=== PATIENT | male | born 1940 | race Caucasian/White ===

== ENCOUNTER 2016-11-21 19:33 | Observation (INO) | payer MEDICARE, OTHER ==
[2016-11-21] MEDS ORDERED: NS 0.9% 1000 ML* 1,000 ML IV ONE (21:24)
--- NOTE | 2016-11-21 21:44 | ED ---
Jeff Hylton SooYoung, scribed for Deion Hartman MD on 11/21/16 at 2123 . Abdominal Pain/Male - HPI Summary HPI Summary: A 76 y/o M presents to ED with abd pain onset three days ago. The intensity has undulated over the past few days, but today it was severe and constant. Pt had an endoscopy four days ago. Spoke to GI doctor who recommended Nexium, which he did take , but it provided no relief. Endoscopy was clear. Associated sx: gas/ belching, decreased PO intake. Denies fever, vomiting, changes in BM. Aggravating factors: eating. Pert PMHx: pancreatitis in 2013; stomach CA, cholecystectomy; cholelithiasis. - History of Current Complaint Chief Complaint: EDAbdPain Stated Complaint: ABD PAIN Time Seen by Provider: 11/21/16 21:16 Hx Obtained From: Patient, Family/Fitter And Turner Onset/Duration: Lasting Days, Still Present Timing: Constant Severity Initially: Moderate Severity Currently: Moderate Pain Intensity: 4 Pain Scale Used: 0-10 Numeric Location: Diffuse Aggravating Factor(s): Food Associated Signs And Symptoms: Positive: Decreased Appetite, Other - pos: belching; neg: BM changes. Negative: Fever, Vomiting - Allergies/Home Medications Allergies/Adverse Reactions: Allergies Allergy/AdvReac Type Severity Reaction Status Date / Time No Known Allergies Allergy Verified 11/17/16 10:56 PMH/Surg Hx/FS Hx/Imm Hx Previously Healthy: No Endocrine/Hematology History: Denies: Hx Diabetes, Hx Thyroid Disease Cardiovascular History: Reports: Hx Hypercholesterolemia, Hx Hypertension Denies: Hx Congestive Heart Failure, Hx Pacemaker/ICD Respiratory History: Denies: Hx Asthma, Hx Chronic Obstructive Pulmonary Disease (COPD) GI History: Reports: Other GI Disorders - SBO 07/2014 Denies: Hx Ulcer History: Denies: Hx Renal Disease Musculoskeletal History: Reports: Hx Arthritis Sensory History: Reports: Hx Contacts or Glasses - glasses Denies: Hx Hearing Aid Opthamlomology History: Reports: Hx Contacts or Glasses - glasses Psychiatric History: Denies: Hx Panic Disorder - Cancer History Cancer Type, Location and Year: Prostate cancer, diagnosed 2011. gall bladder CA 2014 - Surgical History Surgery Procedure, Year, and Place: Right knee replacement x2, most recent 2010 , [facility]. Left knee replacement, 2008, [facility]. Carpal tunnel release, right hand, 04/2013, [facility]. prostate biopsy. CHOLECYSTECTOMY ~3-19-15 Hx Anesthesia Reactions: No Infectious Disease History: Denies: Hx Hepatitis, Hx Human Immunodeficiency Virus (HIV), Traveled Outside the [place] in Last 30 Days - Family History Known Family History: Positive: Cardiac Disease - CHF, Other - colon CA, prostate CA, dementia - Social History Occupation: Retired Lives: With Family Alcohol Use: Occasionally Alcohol Amount: 2-3 wk Hx Substance Use: No Substance Use Type: Reports: None Hx Tobacco Use: No Smoking Status (MU): Never Smoked Tobacco Review of Systems Negative: Fever Positive: Abdominal Pain, Other - pos: decreased PO intake, gas/belching. Negative: Vomiting Positive: other - neg: changes in BM All Other Systems Reviewed And Are Negative: Yes Physical Exam Triage Information Reviewed: Yes Vital Signs On Initial Exam: Initial Vitals Temp Pulse Resp BP Pulse Ox 98.4 F 86 16 123/66 97 11/21/16 19:41 11/21/16 19:41 11/21/16 19:41 11/21/16 19:41 11/21/16 19:41 Vital Signs Reviewed: Yes Appearance: Positive: Well-Appearing, Pain Distress - mild discomfort Skin: Positive: Warm Head/Face: Positive: Normal Head/Face Inspection Eyes: Positive: WENDY ENT: Positive: Hearing grossly normal Neck: Positive: Supple Respiratory/Lung Sounds: Positive: Clear to Auscultation, Breath Sounds Present Cardiovascular: Positive: RRR Abdomen Description: Positive: Nontender - mild diffuse tenderness, Soft, Distended. Negative: Guarding Bowel Sounds: Positive: Present Musculoskeletal: Positive: Strength/ROM Intact Neurological: Positive: Alert, Oriented to Person Place, Time Psychiatric: Positive: Affect/Mood Appropriate Diagnostics - Vital Signs Vital Signs Temp Pulse Resp BP Pulse Ox 11/21/16 21:03 98.1 F 73 20 129/75 98 11/21/16 20:47 98.1 F 73 20 129/75 11/21/16 19:41 98.4 F 86 16 123/66 97 - Laboratory Result Diagrams: 11/21/16 22:12 11/21/16 22:12 Lab Statement: Any lab studies that have been ordered have been reviewed, and results considered in the medical decision making process. - CT ABD/PEL CT Interpretation: Positive (See Comments) - IMPRESSION: Probable portal vein and superior mesenteric vein thrombosis can be confirmed with duplex ultrasound. Duodenal inflammation may be primary, related to peptic ulcer dz, but recurrent neoplastic involvement from the gallbladder fossa is not excluded. Mild splenomegaly. CT Interpretation Completed By: Radiologist - Ultrasound No standard instances Ultrasound Interpretation: Positive (See Comments) - ABD U/S, IMPRESSION: Partial occlusion of the main and right portal veins, with nonvisualization of the left portal vein, left hepatic vein and poor visualization of the splenic vein. Ultrasound Interpretation Completed By: Radiologist Re-Evaluation - Re-Evaluation First Eval Comment: results d/w pt, d/w hospitalist Abdominal Pain Fem Course/Dx - Course Course Of Treatment: Pt is a 76 y/o M presenting with abd pain onset three days ago. The intensity has undulated over the past few days, but today it was severe and constant. Pt had an endoscopy four days ago. Spoke to GI doctor who recommended Nexium, which he did take , but it provided no relief. Endoscopy was clear. Associated sx: gas/belching, decreased PO intake. Denies fever, vomiting, changes in BM. Aggravating factors: eating. Pert PMHx: pancreatitis in 2013; stomach CA, cholecystectomy; cholelithiasis. Pt given fluids in ED. Labs show 115.98 CRP, 112 lipase, 156 alkaline phosphotase, 108 glucose, 1.8 bilirubin. UA results are nml except 1+ blood. APD/PEL CT shows "Probable portal vein and superior mesenteric vein thrombosis can be confirmed with duplex ultrasound. Duodenal inflammation may be primary, related to peptic ulcer dz, but recurrent neoplastic involvement from the gallbladder fossa is not excluded. Mild splenomegaly." ABD U/S shows "Partial occlusion of the main and right portal veins, with nonvisualization of the left portal vein, left hepatic vein and poor visualization of the splenic vein." - Diagnoses Provider Diagnoses: Portal vein thrombosis - Provider Notifications Discussed Care Of Patient With: Manuel Lara - hospitalist Time Discussed With Above Provider: 01:34 Instructed by Provider To: Admit As Inpatient Discharge - Discharge Plan Condition: Fair Disposition: ADMITTED TO [facility] The documentation as recorded by the Jeff hayward SooYoung accurately reflects the service I personally performed and the decisions made by me, Deion Hartman MD.
[2016-11-21 21:58] LABS: Urine Bacteria Absent (Absent); Urine Bilirubin Negative (Negative); Urine Glucose Negative (Negative); Urine Nitrite Negative (Negative)
[2016-11-21 22:19] LABS: Hematocrit 40 % (42-52); Hemoglobin 13.4 g/dl (14.0-18.0); Mean Corpuscular HGB Conc 34 g/dl (31-36); Mean Corpuscular Hemoglobin 30 pg (27-31); Mean Corpuscular Volume 88 fL (80-94); Mean Platelet Volume 10 um3 (7.4-10.4); Red Blood Count 4.51 10^6/ul (4.0-5.4); Red Cell Distribution Width 14 % (10.5-15)
[2016-11-21 22:33] LABS: EGFR Non-African American 68.3 (>60); Potassium 3.5 mmol/L (3.5-5.0)
[2016-11-21 22:34] LABS: Albumin 3.8 g/dL (3.2-5.2); C Reactive Protein 115.98 mg/L (< 5.00); Calcium 9.2 mg/dL (8.6-10.3); EGFR African American 87.8 (>60); Globulin 3.3 g/dL (2-4); Magnesium 1.8 mg/dL (1.9-2.7); Total Bilirubin 1.8 mg/dL (0.2-1.0); Total Protein 7.1 g/dL (6.4-8.9)
[2016-11-21] MEDS ORDERED: Iohexol 300* (CONTRAST) 10 ML SDV IV ONE (22:49)
[2016-11-22] MEDS ORDERED: HYDROmorphone* 1 MG/ML 1 ML SYR IV PRN (02:17)
[2016-11-22] MEDS ORDERED: Acetaminophen TAB* 325 MG PO PRN (02:17)
[2016-11-22] MEDS ORDERED: Melatonin (NF) 3 MG TAB PO PRN (02:17)
[2016-11-22] MEDS ORDERED: traMADol TAB* 50 MG PO PRN (02:17)
[2016-11-22] MEDS ORDERED: Ondansetron INJ* 2 MG/ML VIAL IV PRN (02:17)
--- NOTE | 2016-11-22 02:18 | HP ---
H&P (Free Text) History and Physical: PCP: Candice Gregory Date/Time of Evaluation: 11/22/2016 0205 CC: abdominal pain HPI: Mr Dukes is a 76YO obese male HX prostate CA, gastric lymphoma, & ? cholangiocarcinoma who underwent EGD via Maribell Doll MD GI this past Tuesday at which time he was in his usual health. Starting insidiously he began having diffuse abdominal discomfort associated with poor PO intake. He denies changes in bowel/bladder, F/C, sweats, weight loss, chest pain, SOB, palpitations, or other issues. Evaluation is notable for CT abd/pel W revealing portal vein thrombosis confirmed via US. PMedHx HTN HLD prostate CA s/p seed implants gastric CA s/p radiation ? cholantiocarcinoma s/p cholecystectomy gall stone pancreatitis s/p cholecystectomy BPH Ambulatory Orders Nursing to reconcile. Metoprolol Succinate XL TAB* [Toprol XL TAB*] 50 mg PO QPM 04/30/14 Pravastatin (NF) [Pravachol (NF)] 40 mg PO QPM 04/30/14 Valsartan/HCTZ 160/12.5(NF) [Diovan HCT 160/12.5 (NF)] 0.5 tab PO QPM 04/30/14 Tamsulosin CAP* [Flomax CAP*] 0.4 mg PO QPM 11/17/16 Allergies No Known Allergies Allergy (Verified 11/17/16 10:56) PSurgHx abdominal lymph node dissection with gall bladder/liver bed resection cholecystectomy R carpal tunnel release L TKA R TKA s/p revision SocHx: no tobacco, alcohol, or recreational drug HX; lives with his ; retired [facility] [employer]; full code status FamHx: Mother: passed in her 90s w/ HX CHF & dementia; Father: passed in his 60s 2nd colon CA; brother x2: prostate CA ROS: as above, otherwise reviewed and all were negative Constitutional: NAD, normally developed, obese elderly white male vitals: Vital Signs Temp 36.7 C 11/21/16 21:03 Pulse 74 11/22/16 01:00 Resp 20 11/21/16 21:03 BP 125/61 11/21/16 23:00 Pulse Ox 97 11/22/16 01:00 Intake & Output 07/07/0911/21/16 11/22/16 11:59 23:59 11:59 Weight 117.934 kg HEENM: atraumatic; sclera/conjunctiva: non-icteric/clear; hearing: clinically intact; oropharynx: clear, mucosa moist Neck: soft tissue: no nuchal rigidity; thyroid: normal Pulmonary: clear to auscultation bilaterally, good aeration, no accessory muscle use CV: RR/RR, normal S1S2, no carotid bruit, no jugular venous distention, 2+ B DP/ PT, no edema Abdominal: soft, non-distended, non-tender, no rebound/guarding/rigidity, normoactive bowel sounds, no hepatosplenomegaly or masses, no costovertebral angle tenderness Musculoskeletal: general: grossly intact; gait: stable Integumental: normal appearance and texture of exposed skin Psychiatric orientation: AA&O to PPS affect: calm mood: cooperative eye contact: good content: reliable responses: timely insight: good Testing: Lab Results 11/21/16 11/21/16 11/21/16 Range/Units 21:12 22:12 22:12 WBC 8.0 (3.5-10.8) 10^3/ul RBC 4.51 (4.0-5.4) 10^6/ul Hgb 13.4 L (14.0-18.0) g/dl Hct 40 L (42-52) % MCV 88 (80-94) fL MCH 30 (27-31) pg MCHC 34 (31-36) g/dl RDW 14 (10.5-15) % Plt Count 100 L (150-450) 10^3/ul MPV 10 (7.4-10.4) um3 Neut % (Auto) 70.8 (38-83) % Lymph % (Auto) 19.3 L (25-47) % [place] % (Auto) 9.0 (1-9) % Eos % (Auto) 0.3 (0-6) % Baso % (Auto) 0.6 (0-2) % Absolute Neuts (auto) 5.7 (1.5-7.7) 10^3/ul Absolute Lymphs (auto) 1.5 (1.0-4.8) 10^3/ul Absolute Monos (auto) 0.7 (0-0.8) 10^3/ul Absolute Eos (auto) 0 (0-0.6) 10^3/ul Absolute Basos (auto) 0 (0-0.2) 10^3/ul Absolute Nucleated RBC 0.01 10^3/ul Nucleated RBC % 0.1 Sodium 133 (133-145) mmol/L Potassium 3.5 (3.5-5.0) mmol/L Chloride 100 L (101-111) mmol/L Carbon Dioxide 25 (22-32) mmol/L Anion Gap 8 (2-11) mmol/L BUN 18 (6-24) mg/dL Creatinine 1.06 (0.67-1.17) mg/dL Est GFR ( Amer) 87.8 (>60) Est GFR (Non-Af Amer) 68.3 (>60) BUN/Creatinine Ratio 17.0 (8-20) Glucose 108 H (70-100) mg/dL Lactic Acid (0.5-2.0) mmol/L Calcium 9.2 (8.6-10.3) mg/dL Magnesium 1.8 L (1.9-2.7) mg/dL Total Bilirubin 1.80 H (0.2-1.0) mg/dL AST 30 (13-39) U/L ALT 26 (7-52) U/L Alkaline Phosphatase 156 H (34-104) U/L C-Reactive Protein 115.98 H (< 5.00) mg/L Total Protein 7.1 (6.4-8.9) g/dL Albumin 3.8 (3.2-5.2) g/dL Globulin 3.3 (2-4) g/dL Albumin/Globulin Ratio 1.2 (1-3) Lipase 112 H (11.0-82.0) U/L Urine Color Yellow Urine Appearance Clear Urine pH 5.0 (5-9) Ur Specific [place] 1.015 (1.010-1.030) Urine Protein Negative (Negative) Urine Ketones Negative (Negative) Urine Blood 1+ H (Negative) Urine Nitrate Negative (Negative) Urine Bilirubin Negative (Negative) Urine Urobilinogen Negative (Negative) Ur Leukocyte Esterase Negative (Negative) Urine WBC (Auto) Absent (Absent) Urine RBC (Auto) Absent (Absent) Urine Bacteria Absent (Absent) Urine Glucose Negative (Negative) 07/02/17 Range/Units 22:12 WBC (3.5-10.8) 10^3/ul RBC (4.0-5.4) 10^6/ul Hgb (14.0-18.0) g/dl Hct (42-52) % MCV (80-94) fL MCH (27-31) pg MCHC (31-36) g/dl RDW (10.5-15) % Plt Count (150-450) 10^3/ul MPV (7.4-10.4) um3 Neut % (Auto) (38-83) % Lymph % (Auto) (25-47) % [place] % (Auto) (1-9) % Eos % (Auto) (0-6) % Baso % (Auto) (0-2) % Absolute Neuts (auto) (1.5-7.7) 10^3/ul Absolute Lymphs (auto) (1.0-4.8) 10^3/ul Absolute Monos (auto) (0-0.8) 10^3/ul Absolute Eos (auto) (0-0.6) 10^3/ul Absolute Basos (auto) (0-0.2) 10^3/ul Absolute Nucleated RBC 10^3/ul Nucleated RBC % Sodium (133-145) mmol/L Potassium (3.5-5.0) mmol/L Chloride (101-111) mmol/L Carbon Dioxide (22-32) mmol/L Anion Gap (2-11) mmol/L BUN (6-24) mg/dL Creatinine (0.67-1.17) mg/dL Est GFR ( Amer) (>60) Est GFR (Non-Af Amer) (>60) BUN/Creatinine Ratio (8-20) Glucose (70-100) mg/dL Lactic Acid 1.0 (0.5-2.0) mmol/L Calcium (8.6-10.3) mg/dL Magnesium (1.9-2.7) mg/dL Total Bilirubin (0.2-1.0) mg/dL AST (13-39) U/L ALT (7-52) U/L Alkaline Phosphatase (34-104) U/L C-Reactive Protein (< 5.00) mg/L Total Protein (6.4-8.9) g/dL Albumin (3.2-5.2) g/dL Globulin (2-4) g/dL Albumin/Globulin Ratio (1-3) Lipase (11.0-82.0) U/L Urine Color Urine Appearance Urine pH (5-9) Ur Specific [place] (1.010-1.030) Urine Protein (Negative) Urine Ketones (Negative) Urine Blood (Negative) Urine Nitrate (Negative) Urine Bilirubin (Negative) Urine Urobilinogen (Negative) Ur Leukocyte Esterase (Negative) Urine WBC (Auto) (Absent) Urine RBC (Auto) (Absent) Urine Bacteria (Absent) Urine Glucose (Negative) CT abd/pel W, personally reviewed: IMPRESSION: Probable portal vein and superior mesenteric vein thrombosis can be confirmed with duplex ultrasound. Duodenal inflammation may be primary, related to peptic ulcer disease, but recurrent neoplastic involvement from the gall bladder fossa is not excluded. Mild splenomegaly. US abd: IMPRESSION: Partial occlusion of the main and right portal veins with non-visualization of the left portal vein, left hepatic vein, and poor visualization of the splenic vein. Impression: 76M presenting with abdominal pain & HX prostate & gastric CA found to have acute portal vein thrombosis DIAGNOSIS & PLAN Primary acute portal vein thrombosis : pain control : heparin GTT : supportive care Secondary HTN : continue metoprolol & valsartan/HCTZ HLD : continue pravastatin HX prostate CA & gastric CA : concern for recurrence give primary diagnosis : consider GI consult in AM for EGD : check PSA BPH : continue tamsulosin Admission Rational: inpatient for initiation of anticoagulation for acute portal vein thrombosis DVTp: heparin GTT Code Status: full HCP:
[2016-11-22] MEDS ORDERED: NS 0.9% 1000 ML* 1,000 ML IV SCH (02:30)
[2016-11-22] MEDS ORDERED: Heparin DRIP 25,000 UNITS(*) 25,000 UNITS/500 ML BAG IVPB SCH (02:30)
[2016-11-22] MEDS ORDERED: Heparin VIAL(*) 5000 UNITS/ML VIAL (FIVE THOUSAND) IV SCH (03:00)
[2016-11-22] MEDS ORDERED: Omeprazole CAP* 20 MG PO SCH (06:00)
--- NOTE | 2016-11-22 07:41 | RAD ---
CLINICAL HISTORY: Abdominal pain COMPARISON: August 10, 2014 TECHNIQUE: Multiple contiguous axial CT scans were obtained of the abdomen and pelvis after the administration of intravenous contrast. Coronal and sagittal multiplanar reformations are submitted for review. Oral contrast was administered. Delayed images were obtained through the abdomen and pelvis. FINDINGS: LUNG BASES: There is a calcified granuloma of the right lower lobe LIVER: There is diffuse hypoattenuation of the left lobe of the liver results in delayed images. The portal vein is not well visualized and appears to be thrombosed extending into the superior mesenteric vein BILE DUCTS: There is intrahepatic and extrahepatic biliary dilatation. The common duct measures up to 1 cm in caliber. GALLBLADDER: Surgical clips are noted in the gallbladder fossa PANCREAS: The pancreas is normal, without mass or ductal dilatation. SPLEEN: The spleen is mildly enlarged UPPER GI TRACT: Evaluation of the gastrointestinal tract is limited by incomplete gastric distention. There is mild mucosal edema of the duodenum. SMALL BOWEL AND MESENTERY: The small bowel is normal in contour, course, and caliber. There is no obstruction or dilatation. COLON: The colon is normal in contour, course, caliber. There is no pericolonic inflammatory change. ADRENALS: Normal bilaterally. KIDNEYS: Renal cysts are noted. There is no appreciable hydronephrosis or nephrolithiasis. BLADDER: The bladder is smooth in contour. PELVIC ORGANS: Metallic clips are noted in the prostate gland consistent with brachytherapy AORTA: There is calcific atherosclerotic disease of the abdominal aorta and its branches, without aneurysmal dilatation IVC: Unremarkable LYMPH NODES: There is no lymphadenopathy by size criteria. ABDOMINAL WALL: There is no evidence for abdominal wall hernia. BONES AND SOFT TISSUES: Degenerative changes are noted of the spine. There is mild sclerotic curvature of the spine. There is a lipoma of the right thigh, that appears to be intramuscular within the sartorius. OTHER: None IMPRESSION: 1. PORTAL VEIN THROMBOSIS EXTENDING TO THE SUPERIOR MESENTERIC VEIN. 2. MILD SPLENOMEGALY. 3. MILD MUCOSAL EDEMA OF THE DUODENUM. 4. DIFFUSE HYPOATTENUATION OF THE LEFT LOBE OF THE LIVER THAT RESOLVES ON DELAYED IMAGES CONSISTENT WITH A TRANSIENT HEPATIC ATTENUATION DIFFERENCE
--- NOTE | 2016-11-22 07:53 | RAD ---
HISTORY: Portal vein thrombosis COMPARISONS: CT dated November 21, 2016 TECHNIQUE: Directed ultrasound examination was obtained of the portal vein, splenic vein, and hepatic using grayscale, color Doppler, and spectral Doppler imaging. FINDINGS: There is partial occlusion of the main portal vein. There is partial occlusion of the right portal vein. The left portal vein is not visualized. The right and mid hepatic veins are patent. The left hepatic vein is not visualized. The splenic vein is not well visualized IMPRESSION: 1. PARTIAL OCCLUSION OF THE RIGHT PORTAL VEIN AND MAIN PORTAL VEIN. THE LEFT PORTAL VEIN IS NOT WELL VISUALIZED BE COMPLETELY OCCLUDED. 2. LEFT HEPATIC VEIN IS NOT WELL VISUALIZED. 3. THE SPLENIC VEIN IS NOT WELL VISUALIZED.
[2016-11-22] MEDS ORDERED: Docusate CAP* 100 MG PO SCH (09:00)
[2016-11-22] MEDS ORDERED: Rivaroxaban TAB(*) 15 MG PO ONE (11:23)
--- NOTE | 2016-11-22 11:33 | DCNOTE ---
Patient seen this morning. Abdominal pain has nearly resolved. Eating with no issues. Moved his bowels. Symptoms of indigestion/bloating seem to have improved as well. On exam, RRR, s1 and s2 present, no m/g/r, lungs CTA B/L, no w/r/r, abd soft, mild TTP in epigastric area, no LE edema CT/US shows portal vein thrombosis. Treated overnight on heparin gtt. Discussed options of warfarin vs NOAC and decided we will discharge home on xarelto. Bx results from EGD normal, PSA normal. Hx of GB cancer, nothing obvious on imaging , will need close follow-up as outpatient.
[2016-11-22 12:12] VITALS: BP 112/67
[2016-11-22] MEDS ORDERED: Hydrochlorothiazide TAB* 25 MG PO SCH (18:00)
[2016-11-22] MEDS ORDERED: Valsartan TAB* 80 MG PO SCH (18:00)
[2016-11-22] MEDS ORDERED: Metoprolol Succinate XL TAB* 50 MG PO SCH (18:00)
[2016-11-22] MEDS ORDERED: Atorvastatin* 10 MG TAB PO SCH (18:00)
[2016-11-22] MEDS ORDERED: Tamsulosin CAP* 0.4 MG PO SCH (18:00)
--- NOTE | 2016-11-23 08:56 | DS ---
CC: Cecelia Gregory NP; Dr. Derek Del Valle; Dr. Otoniel Doll DISCHARGE SUMMARY: DATE OF ADMISSION: 11/22/16 DATE OF DISCHARGE: 11/22/16 PRIMARY CARE PHYSICIAN: Cecelia Gregory NP PRINCIPAL DISCHARGE DIAGNOSIS: Portal vein thrombosis. SECONDARY DIAGNOSES: Hypertension, hyperlipidemia, history of prostate cancer, history of gastric M ALT, history of gallbladder cancer, BPH. DISCHARGE MEDICATION REGIMEN: 1. Diovan 160/12.5, 0.5 tablets by mouth nightly. 2. Flomax 0.4 mg by mouth nightly. 3. Pravastatin 40 mg by mouth nightly. 4. Toprol-XL 50 mg by mouth nightly. 5. Xarelto 15 mg by mouth 2 times daily x3 weeks and then 20 mg by mouth daily. 6. Omeprazole 20 mg by mouth daily. 7. Tylenol 650 mg by mouth every 6 hours as needed for pain. STUDIES DONE DURING THIS HOSPITALIZATION: CT abdomen and pelvis with contrast, impression: Portal vein thrombosis extending to the superior mesenteric vein, mild splenomegaly, mild mucosal edema of the duodenum, diffuse hyper attenuation of the left lobe of the liver that resolved, delayed images consistent with a transient hepatic attenuation difference. Limited abdominal ultrasound, impression: Partial occlusion of the right and main portal veins. Le ft portal vein is not well visualized and could be completely occluded. Left hepatic vein is not we ll visualized. Splenic vein is not well visualized. HISTORY OF PRESENT ILLNESS AND HOSPITAL SUMMARY: Please see the full history and physical by Dr. Fr stanley Lara for full details. Briefly, Mr. Dukes is a 76- year-old male with a past medical his tory as above, who presented to the hospital with abdominal pain beginning 2 to 3 days prior to admi ssion associated with indigestion and a lot of belching. The abdominal pain progressed and he came to the hospital for further evaluation. As noted above, imaging shows portal vein thrombosis. The patient was started on heparin drip. By the following morning, he had significant improvement in hi s symptoms with only minimal pain. He was tolerating a diet with no issues. The patient had recent ly undergone an EGD by Dr. Doll as part of regular screening for his history of MALT of the stoma ch. Biopsies from that procedure were reviewed and did not show any signs of malignancy. The patien t also had a PSA checked here that was 1.7, which is in the normal range. The patient does have a h istory of gallbladder cancer with nothing shown on the CT scan, but he should follow up closely with Dr. Del Valle. Discussion was had with the patient regard regarding anticoagulation and decision was nitin garrido to start him on Xarelto to treat this thrombosis. He was also started on a PPI due to his indige stion symptoms. The patient will follow up with his PCP and Dr. Del Valle as an outpatient. TIME SPENT: Total time spent on this discharge 35 minutes. This is just a summary of the hospitalization. Please see the full medical record for further detai ls. [id number]/CPS #: [id number]
== END 2016-11-22 13:00 | disposition home or self-care (01) ==
LOC: ED 19:33 → INTOOBSV 11-22 02:38 → MED 11-22 02:38
PROVIDERS: ADMIT Hospitalist; ATTEND Hospitalist
DX: I81 Portal vein thrombosis (principal); I10 Essential (primary) hypertension; Z85.46 Personal history of malignant neoplasm of prostate; Z85.79 Personal history of other malignant neoplasms of lymphoid, hematopoietic and related tissues; N40.0 Benign prostatic hyperplasia without lower urinary tract symptoms; R10.9 Unspecified abdominal pain; R16.1 Splenomegaly, not elsewhere classified; I49.1 Atrial premature depolarization; Z79.01 Long term (current) use of anticoagulants; Z79.899 Other long term (current) drug therapy; Z12.5 Encounter for screening for malignant neoplasm of prostate
CPT/HCPCS: 36415; 74177; 76705; 80053; 81003; 81015; 83605; 83690; 83735; 84153; 85025; 85730; 86140; 88184; 88185; 93005; 96372; 96374; 99283; A9270-GY; G0103; G0378; J1644; Q9967

== ENCOUNTER 2017-04-19 05:49 | Day surgery (SDC) | payer MEDICARE, OTHER ==
[~2017-04-19 05:49] MED LIST: Buffered Lidocaine 0.9% SYRIN* 5 ML/SYR SYRINGE INTRADERM ONE
[2017-04-19] MEDS ORDERED: Famotidine IV* 10 MG/ML 2 ML (20 mg) ONE (05:55)
[2017-04-19] MEDS ORDERED: ceFAZolin 2 GM PREMIX (*) 2 GM/50 ML BAG IVPB ONE (05:55)
[2017-04-19] MEDS ORDERED: Buffered Lidocaine 0.9% SYRIN* 5 ML/SYR SYRINGE ONE (05:55)
[2017-04-19] MEDS ORDERED: Famotidine IV* 10 MG/ML 2 ML (20 mg) IV ONE (06:00)
[2017-04-19] MEDS ORDERED: Midazolam* 1 MG/ML 2 ML VIAL (2 MG) ONE (07:45)
[2017-04-19] MEDS ORDERED: fentaNYL* 50 MCG/ML 2 ML VIAL (100 MCG VIAL) ONE (07:46)
[2017-04-19] MEDS ORDERED: Lidocaine 2% PF * 5 ML VIAL ONE (08:07)
[2017-04-19] MEDS ORDERED: Ondansetron INJ* 2 MG/ML VIAL ONE (08:07)
[2017-04-19] MEDS ORDERED: Ketorolac INJ* 30 MG/ML 1 ML VIAL ONE (08:07)
[2017-04-19] MEDS ORDERED: Propofol* 10 MG/ML 20 ML BTL IV PUSH ONE (08:07)
[2017-04-19] MEDS ORDERED: Acetaminophen TAB* 325 MG PO PRN ×3 (08:50→09:02)
[2017-04-19] MEDS ORDERED: oxyCODONE TAB* 5 MG TAB PO PRN (09:01)
[2017-04-19 09:35] VITALS: BP 99/70
--- NOTE | 2017-04-19 09:44 | RAD ---
INDICATION: Central venous catheter placement. COMPARISON: There are no prior studies available for comparison. TECHNIQUE: A portable view of the chest was obtained. FINDINGS: Cardiac and mediastinal contours appear to be within normal limits. There is a central venous port catheter. The catheter enters on the left side. A portion of the proximal catheter projects over the base of the neck and is not visualized on the film. The distal portion of the catheter projects over the right atrium. The lungs are underinflated and clear. No pleural effusion or pneumothorax is seen. IMPRESSION: STATUS POST CENTRAL VENOUS CATHETER PLACEMENT, NO EVIDENCE FOR ACUTE FINDING.
--- NOTE | 2017-04-19 11:51 | RAD ---
INDICATION: Power port central venous catheter placement. TECHNIQUE: 17.5 seconds of intermitted fluoroscopic guidance were provided. FINDINGS: There is a power port central venous catheter present entering on the left side. The catheter tip projects in the region of the superior vena cava and right atrial junction. IMPRESSION: INTRAOPERATIVE CONTROL FILMS. CPT II Codes: 6045F
[2017-04-19] MEDS ORDERED: Lidocaine 1% INJ* 10 MG/ML 30 ML SDV ONE (14:43)
[2017-04-20] MEDS ORDERED: Furosemide TAB* 40 MG PO SCH (09:00)
--- NOTE | 2017-04-20 09:29 | OP ---
CC: Derek Del Valle MD. * DATE OF OPERATION: 04/19/17 - [facility] DATE OF : 44 SURGEON: Ron Ybarra MD. FLUX CORE WELDER: None. ANESTHESIOLOGIST: Dr. Bush. ANESTHESIA: Local, MAC. PRE-OP DIAGNOSIS: Metastatic adenocarcinoma. POST-OP DIAGNOSIS: Metastatic adenocarcinoma. OPERATIVE PROCEDURE: PowerPort placement via left internal jugular approach. ESTIMATED BLOOD LOSS: Minimal. IV FLUIDS: Crystalloids. SPECIMEN: None. DRAINS: None. COMPLICATIONS: None. COUNTS: Instrument, needle, and sponge counts are correct. DESCRIPTION OF PROCEDURE: The patient was brought to the operating room and placed on the table supine. Sequential compression devices were placed on both lower extremities. He was administered intravenous sedation. His chest and neck were prepped and draped in the usual sterile fashion and a time-out was performed. Local anesthetic was infiltrated initially for a left subclavian approach. Despite several attempts to cannulate the left subclavian vein, this was unsuccessful. Next, the left internal jugular vein was approached and again local anesthetic infiltrated at the site. Ultrasound guidance was used to identify the internal jugular vein and cannulation was performed under ultrasound guidance with venous blood return. The J-wire was placed without difficulty into the superior vena cava and its position confirmed under fluoroscopy. Additional local anesthetic was then infiltrated into the left upper chest for the subcutaneous pocket. A transverse incision was created and then the pocket was created inferior to this. Additional anesthetic was infiltrated along the subcutaneous tissues of the proposed line of the tunnel. An 8-Cypriot PowerPort catheter was back-tunnelled from the guide-wire insertion site after making a counter incision there. The peel-away sheath and dilator were then advanced over the guidewire into the superior vena cava under fluoroscopic guidance. The guide-wire and dilator were removed and the catheter was advanced until the tip was at the atriocaval junction. The catheter was then cut to an appropriate length and connected to the port which was positioned in the pocket and sutured to the muscle with 2-0 Prolene. The port was accessed. It wesley and flushed easily. The pocket was then closed with 3-0 Polysorb in interrupted fashion for the subcutaneous tissues and a 4-0 Monocryl in a running subcuticular fashion to the skin. Counter incision was also closed in 2 layers with the same sutures. Lastly, the port was flushed with heparinized saline. Steri-Strips were placed at both sites and Tegaderm dressing placed over the port site. The patient tolerated the procedure well, was awaken and transferred to Recovery in stable condition. [id number]/[facility] #: [id number] JUAN ANTONIO
== END 2017-04-19 09:50 | disposition home or self-care (01) ==
LOC: OR 05:49
PROVIDERS: ATTEND Surgery
DX: C48.2 Malignant neoplasm of peritoneum, unspecified (principal); C23 Malignant neoplasm of gallbladder; Z85.46 Personal history of malignant neoplasm of prostate; Z85.79 Personal history of other malignant neoplasms of lymphoid, hematopoietic and related tissues; E78.5 Hyperlipidemia, unspecified; I10 Essential (primary) hypertension; Z80.0 Family history of malignant neoplasm of digestive organs
CPT/HCPCS: 71010; C1788; J0690; J1642; J1885; J2250; J2405; J2704; J3010

== ENCOUNTER 2017-06-30 21:17 | Emergency (ER) | payer MEDICARE, OTHER ==
[2017-07-01] MEDS ORDERED: NS 0.9% 1000 ML*IV.FLUID IV ONE (00:09)
[2017-07-01] MEDS ORDERED: Piperacillin/Tazobac ADVAN(*) 3.375 GM in NS 0.9% 100 ML* 100 ML IVPB ONE (00:11)
[2017-07-01] MEDS ORDERED: Vancomycin(*) 1,000 MG in NS 0.9% 250 ML* 250 ML IVPB ONE (00:11)
[2017-07-01 00:19] LABS: Hematocrit 28 % (42-52); Hemoglobin 9.1 g/dl (14.0-18.0); Mean Corpuscular HGB Conc 33 g/dl (31-36); Mean Corpuscular Hemoglobin 28 pg (27-31); Mean Corpuscular Volume 85 fL (80-94); Mean Platelet Volume 8 um3 (7.4-10.4); Platelet Count 391 10^3/ul (150-450); Red Blood Count 3.28 10^6/ul (4.0-5.4); Red Cell Distribution Width 20 % (10.5-15); White Blood Count 2.7 10^3/ul (3.5-10.8)
[2017-07-01 00:26] LABS: EGFR Non-African American 63.4 (>60); INR 1.11 (0.77-1.02)
[2017-07-01 00:51] LABS: ABS Basophils 0 10^3/ul (0-0.2); ABS Eosinophils 0 10^3/ul (0-0.6); ABS Lymphocytes 0.2 10^3/ul (1.0-4.8); ABS Monocytes 0.8 10^3/ul (0-0.8); ABS Neutrophils 1.6 10^3/ul (1.5-7.7); ABS Nucleated RBC 0 10^3/ul; Eosinophil % 0.5 % (0-6); Lymphocyte % 8.6 % (25-47); Nucleated Red Blood Cells % 0.3
--- NOTE | 2017-07-01 01:39 | ED ---
Michael Hylton Angela, scribed for Joana Qiu MD on 07/01/17 at 0002 . HPI Febrile Illness - HPI Summary HPI Summary: This pt is a 76 y/o male, with hx of gallbladder CA, presenting to [facility] sent by Dr. Del Valle c/o fever. Pt is a chemo patient for gallbladder cancer. Pt reports his temperature today was 100.6 F and the second time he took his temperature was 100.1 F today. Pt notes he has abdominal distension and is supposed to have paracentesis tomorrow at Dr. Del Valle's office. He states he has paracentesis often. Pt currently states he is fatigued. He has not taken any Tylenol or Motrin HOT SAW HELPER. He denies nausea, vomiting, pain, or SOB. Pt had blood work 4 days ago which showed low WBC. He had cholecystectomy 2.5 years ago. Sandra Banegas examined his gallbladder and said it was not cancer. [facility] then examined the gallbladder and diagnosed the pt with cancer. - History of Current Complaint Chief Complaint: EDFever Time Seen by Provider: 06/30/17 22:34 Hx Obtained From: Patient, Family/Trolley Operator - Onset/Duration: Started Hours Ago, Still Present Timing: Lasting Hours Current Severity: None Pain Intensity: 0 Pain Scale Used: 0-10 Numeric Aggravating Factors: Nothing Alleviating Factors: Nothing Associated Signs and Symptoms: Other: - POS: abdominal distension. NEG: nausea, vomiting, SOB, pain. - Additional Pertinent History Primary Care Physician: [id number] - Allergy/Home Medications Allergies/Adverse Reactions: Allergies Allergy/AdvReac Type Severity Reaction Status Date / Time No Known Allergies Allergy Verified 06/20/17 12:25 PMH/Surg Hx/FS Hx/Imm Hx Endocrine/Hematology History: Denies: Hx Diabetes, Hx Thyroid Disease Cardiovascular History: Reports: Hx Hypercholesterolemia, Hx Hypertension - 02/28 TOOK PT OFF MEDS DUE TO LOW BP Denies: Hx Congestive Heart Failure, Hx Pacemaker/ICD, Other Cardiovascular Problems/Disorders Respiratory History: Denies: Hx Asthma, Hx Chronic Obstructive Pulmonary Disease (COPD) GI History: Reports: Other GI Disorders - SBO 07/2014 Denies: Hx Ulcer History: Reports: Other Problems/Disorders - hx prostate cancer Denies: Hx Dialysis, Hx Renal Disease Musculoskeletal History: Reports: Hx Arthritis Denies: Other Musculoskeletal History Sensory History: Reports: Hx Contacts or Glasses - glasses Denies: Hx Hearing Aid Opthamlomology History: Reports: Hx Contacts or Glasses - glasses Psychiatric History: Denies: Hx Panic Disorder - Cancer History Cancer Type, Location and Year: Prostate cancer, diagnosed 2011. gall bladder CA 2014 - Surgical History Surgery Procedure, Year, and Place: Right knee replacement x2, most recent 2010 , [place]. Left knee replacement, 2008, [place]. Carpal tunnel release, right hand, 04/2013, [place]. prostate biopsy. CHOLECYSTECTOMY ~08-08-14,abdominal exploritory and removal of cancerous lymph nodes. RADIATION SEEDS PUT IN PROSTATE 04/2016 Hx Anesthesia Reactions: No Infectious Disease History: No Infectious Disease History: Denies: Hx Hepatitis, Hx Human Immunodeficiency Virus (HIV), Traveled Outside the [place] in Last 30 Days - Family History Known Family History: Positive: Cardiac Disease - CHF, Other - colon CA, prostate CA, dementia - Social History Alcohol Use: None Alcohol Amount: 1x per week Hx Substance Use: No Substance Use Type: Reports: None Hx Tobacco Use: No Smoking Status (MU): Never Smoked Tobacco Review of Systems Positive: Fever, Fatigue Negative: Shortness Of Breath Gastrointestinal: Other - abdominal distension Negative: Vomiting, Nausea All Other Systems Reviewed And Are Negative: Yes Physical Exam - Summary Physical Exam Summary: VITAL SIGNS: Reviewed. GENERAL: Patient is a well-developed and nourished male who is lying comfortable in the stretcher. Patient is not in any acute respiratory distress. HEAD AND FACE: No signs of trauma. No ecchymosis, hematomas or skull depressions. No sinus tenderness. EYES: PERRLA, EOMI x 2, No injected conjunctiva, no nystagmus. EARS: Hearing grossly intact. Ear canals and tympanic membranes are within normal limits. MOUTH: Oropharynx within normal limits. NECK: Supple, trachea is midline, no adenopathy, no JVD, no carotid bruit, no c- spine tenderness, neck with full ROM. CHEST: Symmetric, no tenderness at palpation LUNGS: Decreased breath sounds bilaterally. CVS: Regular rate and rhythm, S1 and S2 present, no murmurs or gallops appreciated. ABDOMEN: Soft, non-tender. Pt has abdominal distension with ascites. No rebound no guarding, and no masses palpated. Bowel sounds are normal. EXTREMITIES: FROM in all major joints, no edema, no cyanosis or clubbing. NEURO: Alert and oriented x 3. No acute neurological deficits. Speech is normal and follows commands. SKIN: Dry and warm. Pt is pale. Triage Information Reviewed: Yes Vital Signs On Initial Exam: Initial Vitals Temp Pulse Resp BP Pulse Ox 98.5 F 102 20 114/65 98 06/30/17 22:02 06/30/17 22:02 06/30/17 22:02 06/30/17 22:02 06/30/17 22:02 Vital Signs Reviewed: Yes Diagnostics - Vital Signs Vital Signs Temp Pulse Resp BP Pulse Ox 06/30/17 23:23 98.4 F 112 94/64 99 06/30/17 22:02 98.5 F 102 20 114/65 98 - Laboratory Result Diagrams: 06/30/17 23:53 06/30/17 23:53 Lab Statement: Any lab studies that have been ordered have been reviewed, and results considered in the medical decision making process. - Radiology Chest XR Xray Interpretation: No Acute Changes - no acute processes Radiology Interpretation Completed By: ED Physician Re-Evaluation - Re-Evaluation First Eval Re-Evaluation Time: 01:22 Comment: I reviewed the discharge plan with the pt. Course/Dx - Course Assessment/Plan: This pt is a 76 y/o male presenting to [facility] sent by Dr. Del Valle c /o fever. Pt is a chemo pt for gallbladder cancer. Pt reports his temperature today was 100.6 F and the second time he took his temperature was 100.1 F. Pt notes he has abdominal distension and is supposed to have paracentesis tomorrow at Dr. Del Valle's office. He states he has paracentesis often. Pt currently states he is fatigued. He has not taken any Tylenol or Motrin HOT SAW HELPER. He denies nausea, vomiting, pain, or SOB. Pt had blood work 4 days ago which showed low WBC. In the ED course the pt was given Vancomycin and Zosyn. Chest XR is negative. I discussed pt care with Dr. Del Valle and reviewed the pt's lab results with him. Dr. Del Valle reports the pt can be discharged home. He was instructed to follow up with his oncologist and return to the ED for any worsening symptoms. Pt is agreeable with this plan. - Diagnoses Provider Diagnoses: Fever, Viral syndrome - Provider Notifications Discussed Care Of Patient With: Derek Bael Time Discussed With Above Provider: 01:17 Instructed by Provider To: Other - I discussed pt care with Dr. Del Valle and reviewed the pt's lab results with him. He reports the pt can be discharged home. Discharge - Discharge Plan Condition: Stable Disposition: HOME Patient Education Materials: Fever in Adults (ED), Viral Syndrome (ED) Referrals: Cecelia Gregory [Primary Care Provider] - Derek Del Valle MD [Medical Doctor] - Additional Instructions: Please follow up with your primary care provider and Dr. Del Valle. RETURN TO EMERGENCY DEPARTMENT FOR ANY NEW OR WORSENING SYMPTOMS. The documentation as recorded by the Michael hayward Angela accurately reflects the service I personally performed and the decisions made by me, Joana Qiu MD.
[2017-07-01 01:52] VITALS: BP 112/69
--- NOTE | 2017-07-01 07:35 | RAD ---
INDICATION: Fever COMPARISON: April 11, 2017 TECHNIQUE: PA and lateral dual-energy views were obtained. FINDINGS: Bones/Soft Tissues: There are no acute bony findings. There is a left-sided [id number] catheter. Cardiomediastinal: The cardiomediastinal silhouette is normal. Lungs: There are no infiltrates. There is minimal right middle lobe and/or lingular atelectasis Pleura: There are no pleural effusions. Other: None IMPRESSION: NO ACTIVE DISEASE.
== END 2017-07-01 01:35 | disposition home or self-care (01) ==
LOC: ED 21:17
DX: B34.9 Viral infection, unspecified (principal); E78.00 Pure hypercholesterolemia, unspecified; I10 Essential (primary) hypertension; Z85.46 Personal history of malignant neoplasm of prostate; Z85.89 Personal history of malignant neoplasm of other organs and systems
CPT/HCPCS: 36415; 71046; 80053; 83605; 84484; 85025; 85610; 85730; 86140; 87040; 87502; 99283

== ENCOUNTER 2017-07-07 16:30 | Emergency (ER) | payer MEDICARE, OTHER ==
[2017-07-07] MEDS ORDERED: Bupivacaine 0.25% MDV* 50 ML VIAL INJ ONE ×2 (18:09→18:24)
--- NOTE | 2017-07-07 18:14 | RAD ---
INDICATION: Fall. Facial injury COMPARISON: MRI brain December 27, 2013 TECHNIQUE: Noncontrast axial source images were acquired from the skull base to the vertex. FINDINGS: Ventricles/sulci: The ventricles and cisterns are normal in size and configuration for age. There is mild age-related volume loss. Brain parenchyma: There is no acute appearing focal parenchymal finding, evidence of intracranial mass, or intracranial mass effect. There are underlying chronic microvascular ischemic changes as also documented on the earlier MRI Intracranial hemorrhage:None. Extra-axial spaces: There are no abnormal extra axial fluid collections or evidence of extra-axial mass. Calvarium: There is no calvarial fracture or other calvarial abnormality. There are nasal bone fractures as described in a separate facial CT report. Scalp: There is no evidence of scalp or extracalvarial soft tissue abnormality. Paranasal sinuses/mastoid: The paranasal sinuses and mastoid air cells are clear. Other: None. IMPRESSION: No acute intracranial findings. Chronic microvascular ischemic changes. Nasal bone fractures
--- NOTE | 2017-07-07 18:15 | UC ---
Laceration HPI - HPI Summary HPI Summary: 76 yo WM h/o GB cancer on chemo since end of 2016 p/w nasal bridge laceration s/ p fall on face after a misstep while climbing down stairs of his house. Denies LOC, dizziness or visual changes - History Of Current Complaint Chief Complaint: UCLaceration Stated Complaint: FACIAL INJURY Time Seen by Provider: 07/07/17 17:10 Hx Obtained From: Patient, Family/Insulation Cupola Charger Laceration Location: Face Mechanism Of Injury: Blunt Trauma - FALL on face Onset/Duration: Sudden Onset Pain Intensity: 2 Aggravating Factors: Nothing - Allergies/Home Medications Allergies/Adverse Reactions: Allergies Allergy/AdvReac Type Severity Reaction Status Date / Time No Known Allergies Allergy Verified 07/07/17 16:59 Home Medications: Home Medications Gabapentin CAP(*) [Neurontin 300 CAP(*)] 300 mg PO BID 07/07/17 [History Confirmed 07/07/17] LORazepam [Lorazepam] 0.5 mg PO DAILY WITH MEAL 07/07/17 [History Confirmed ] Magnesium Oxide [Magnesium] 400 mg PO DAILY 07/07/17 [History Confirmed 07/07/17 ] Omeprazole/Sodium Bicarbonate [Omeppi 20 mg-1,100 mg Capsule] 1 cap PO DAILY [History Confirmed 07/07/17] Pravastatin (NF) [Pravachol (NF)] 40 mg PO 1700 07/07/17 [History Confirmed ] Tamsulosin HCl [Flomax] 0.8 mg PO DAILY 07/07/17 [History Confirmed 07/07/17] PMH/Surg Hx/FS Hx/Imm Hx - Additional Past Medical History Additional PMH: GB CANCER on CHEMO 2weeks on/1 week off - Surgical History Surgical History: Yes Surgery Procedure, Year, and Place: Right knee replacement x2, most recent 2010 , [place]. Left knee replacement, 2008, [place]. Carpal tunnel release, right hand, 04/2013, [facility]. prostate biopsy. CHOLECYSTECTOMY ~08-08-14,abdominal exploritory and removal of cancerous lymph nodes. RADIATION SEEDS PUT IN PROSTATE 04/2016 - Family History Known Family History: Positive: Cardiac Disease - CHF, Other - colon CA, prostate CA, dementia - Social History Alcohol Use: None Alcohol Amount: 1x per week Substance Use Type: None Smoking Status (MU): Never Smoked Tobacco - Immunization History Most Recent Influenza Vaccination: Fall 2015 Most Recent Tetanus Shot: unknown Most Recent Pneumonia Vaccination: 2012 Review of Systems Constitutional: Negative Skin: Other - nasal laceration and upper lip abrasion Eyes: Negative ENT: Negative Respiratory: Negative Cardiovascular: Negative Gastrointestinal: Negative Genitourinary: Negative Motor: Negative Neurovascular: Negative Musculoskeletal: Negative Neurological: Negative Psychological: Negative Is Patient Immunocompromised?: Yes - pt on chemo All Other Systems Reviewed And Are Negative: Yes Physical Exam Triage Information Reviewed: Yes Appearance: Ill-Appearing Vital Signs: Initial Vital Signs Temp 36.0 C 07/07/17 16:49 Pulse 78 07/07/17 16:49 Resp 20 07/07/17 16:49 BP 89/56 07/07/17 16:49 Pulse Ox 100 07/07/17 16:49 Eye Exam: Normal ENT Exam: Normal Dental Exam: Normal Neck exam: Normal Neck: Positive: 1 Respiratory Exam: Normal Cardiovascular Exam: Normal Abdominal Exam: Normal Musculoskeletal Exam: Normal Neurological Exam: Normal Psychological Exam: Normal Skin Exam: Normal Skin: Positive: Other - jagged nasal bridge upside down V shaped laceration size 3.2 cm, 2x3cm right upper lip road rash like abrasion, right lower lip abrasion with mild bleeding that stopped Laceration Repair - Laceration Repair 1 Description: Irregular Laceration Size After Repair: Length (cm) - 3.2 Modified For Repair: No Type Injection: Local Anesthesia Used: 0.25% Marcaine Cleansing Completed Via Routine Prep: Yes Irrigation With Pressure Irrigation Device: No Closure Material: Sutures Closure Method: Multilayer - subcut layer closed with EIGHT 6-0 Vicryl sutures f /b SIX 5-0 Nylon sutures on superficial layer of skin Suture Of: Skin Suture Type: Nylon Laceration Course/Dx - Course/Dx Course Of Treatment: upside down V shaped nasal laceration repaired, PO Keflex started, pt to continue for 10 days. Held off Tdap as he is on chemo and is immuncompromised. Repeat BP better at 93/52- pt runs low- per - Differential Dx - Laceration/Wound Differental Diagnoses: Abrasion, Laceration Provider Diagnoses: open fracture of nasal bones. nasal bridge laceration. Fall. immunocompromised state Discharge - Discharge Plan Condition: Stable Disposition: HOME Prescriptions: Cephalexin CAP* [Keflex CAP*] 500 mg PO TID 10 Days #30 cap MDD 3 Patient Education Materials: Nasal Fracture (ED) Referrals: Cecelia Gregory [Primary Care Provider] - Additional Instructions: Follow up with PCP in 2 days for wound check and your oncologist zach Pt to F/u with ENT MD DR Levi CLAIRE for further intervention for new nasal fracture
--- NOTE | 2017-07-07 18:16 | RAD ---
INDICATION: Fall. Facial injury. COMPARISON: CT brain same date TECHNIQUE: Axial source images were acquired from the vertex of the mandible through the orbits. Coronal and sagittal reconstructed images were acquired. FINDINGS: Bones: There are multiple displaced, bilateral nasal bone fractures with associated overlying soft tissue injury. There is no other evidence of facial bone fracture. Orbits: The globes and intraconal structures appear intact. The optic nerves are symmetric. Extraocular muscles appear normal. There is no intraconal inflammatory change or retrobulbar mass.. Paranasal sinuses: The paranasal sinuses are clear. Brain: There are no acute abnormalities of the visualized brain parenchyma. Soft tissues: Normal Other: None The visualized soft tissue elements about the neck appear normal. IMPRESSION: DISPLACED NASAL BONE FRACTURES
[2017-07-07] MEDS ORDERED: Bupivacaine 0.25% SDV* 30 ML ONE (18:29)
[2017-07-07] MEDS ORDERED: Cephalexin CAP* 500 MG PO ONE (19:42)
[2017-07-07 21:55] VITALS: BP 93/52
== END 2017-07-07 20:30 | disposition home or self-care (01) ==
LOC: UCEAST 16:30
DX: S02.2XXB Fracture of nasal bones, initial encounter for open fracture (principal); S00.511A Abrasion of lip, initial encounter; W10.9XXA Fall (on) (from) unspecified stairs and steps, initial encounter; Y93.01 Activity, walking, marching and hiking; Y92.009 Unspecified place in unspecified non-institutional (private) residence as the place of occurrence of the external cause; C23 Malignant neoplasm of gallbladder; Z79.899 Other long term (current) drug therapy
CPT/HCPCS: 12013; 12052; 70450; 70486; 99212; A9270-GY; G0463

== ENCOUNTER 2017-07-10 20:09 | Inpatient (IN) | payer MEDICARE, OTHER ==
[2017-07-10] MEDS ORDERED: Cefepime(*) 2 GM in NS 0.9% 50 ML* 50 ML IVPB ONE (20:38)
[2017-07-10] MEDS ORDERED: Levofloxacin 750 MG IVPREMIX(* 750 MG/150 ML BAG IVPB ONE (20:38)
[2017-07-10 21:17] LABS: Hematocrit 22 % (42-52); Mean Corpuscular HGB Conc 32 g/dl (31-36); Mean Corpuscular Hemoglobin 27 pg (27-31); Mean Corpuscular Volume 84 fL (80-94); Mean Platelet Volume 8 um3 (7.4-10.4); Platelet Count 121 10^3/ul (150-450); Red Blood Count 2.57 10^6/ul (4.0-5.4); Red Cell Distribution Width 20 % (10.5-15)
[2017-07-10] MEDS ORDERED: NS 0.9% 50 ML* 50 ML ONE (21:18)
[2017-07-10] MEDS ORDERED: Cefepime 2 GM in Dextrose(*) 2 GM/50 ML BAG IV ONE ×2 (21:19→22:00)
[2017-07-10 21:28] LABS: INR 1.38 (0.77-1.02)
[2017-07-10 21:34] LABS: EGFR Non-African American 66.8 (>60)
--- NOTE | 2017-07-10 21:37 | RAD ---
INDICATION: Sepsis, history of cancer. COMPARISON: Comparison is made with a prior chest x-ray study from June 30, 2017. TECHNIQUE: A portable view of the chest was obtained. FINDINGS: There is a power port central venous catheter present. The catheter tip projects overlying the superior vena cava. The heart is within normal limits in size. The lungs are underinflated. There is a small infiltrate at the left lung base. No pleural effusion is seen. IMPRESSION: LOW LUNG VOLUMES, SMALL LEFT BASILAR INFILTRATE SUGGESTIVE OF ATELECTASIS LESS LIKELY PNEUMONIA.
[2017-07-10] MEDS ORDERED: NS 0.9% 1000 ML*IV.FLUID IV ONE (21:41)
[2017-07-10 21:47] LABS: ABS Basophils 0.1 10^3/ul (0-0.2); ABS Eosinophils 0 10^3/ul (0-0.6); ABS Lymphocytes 0.1 10^3/ul (1.0-4.8); ABS Monocytes 0 10^3/ul (0-0.8); ABS Neutrophils 10.7 10^3/ul (1.5-7.7); ABS Nucleated RBC 0 10^3/ul; Eosinophil % 0 % (0-6); Lymphocyte % 0.5 % (25-47); Nucleated Red Blood Cells % 0
[2017-07-11] MEDS ORDERED: Azithromycin IV(*) 500 MG in NS 0.9% 250 ML* 250 ML IVPB SCH (00:30)
[2017-07-11] MEDS ORDERED: Vancomycin(*) 1,500 MG in NS 0.9% 250 ML* 250 ML IVPB ONE (01:00)
[2017-07-11 01:03] LABS: Hematocrit 17 % (42-52); Hemoglobin 5.6 g/dl (14.0-18.0)
--- NOTE | 2017-07-11 01:38 | PN ---
Progress Note - Progress Note Date of Service: 07/11/17 Note: SEPSIS FOLLOW UP NOTE: Pt seen at 0130 and found to be persistently hypotensive. Additionally 2L NS bolus ordered. 2 units PRBC ordered for markedly reduced H/H. HR still tachycardic but improved from when pt first presented to ER. Capillary refill < 2sec. Cardiac exam reveals a nl S1S2 mildly tachycardic but regular, pulse 2+, pulmonary exam reveals crackles at R base (unchanged from previous). 07/11/17 00:30 Temperature 99.2F Heart Rate 108 Respiratory 24 Blood Pressure 84/57(mmHg)
[2017-07-11] MEDS: NS 0.9% 1000 ML* 2,000 ML IV ONE ×2 (02:27→05:21)
[2017-07-11] MEDS: Vancomycin(*) 1,500 MG in NS 0.9% 250 ML* 250 ML IVPB ONE ×2 (03:25→09:04)
--- NOTE | 2017-07-11 03:53 | ED ---
Alyson Hylton Julia, scribed for Lion Best MD on 07/10/17 at 2032 . Syncope/Near Syncope - HPI Summary HPI Summary: This patient is a 76 year old M BIBA to [facility] with a chief complaint of a near syncopal episode today. Patient reports weakness with inability to stand, decreased appetite for a couple weeks, new LE edema, and mild fever Patient denies abdominal pain, N/V/D, cough, SOB, chest pain, and head injury. Patient fell last week at the bottom of a flight of stairs and was unable to catch himself. Patient has hx of gallbladder cancer. He is unaware of current stage, but is treated with chemotherapy. Last treatment was 06/29/17. Dr. Del Valle is his oncologist. - History Of Current Complaint Chief Complaint: EDWeakness Time Seen by Provider: 07/10/17 20:23 Hx Obtained From: Patient Onset/Duration: Lasting Weeks, Still Present Timing: Constant Activity At Onset: Exertion - standing/stairs Aggravating Factor(s): Exertion Associated Signs And Symptoms: Other Related History: Similar Episode/Dx as - recent syncopal episode, hx of cancer - Allergies/Home Medications Allergies/Adverse Reactions: Allergies Allergy/AdvReac Type Severity Reaction Status Date / Time No Known Allergies Allergy Verified 07/07/17 16:59 Home Medications: Home Medications Demeclocycline TAB* [Declomycin TAB*] 300 mg PO BID 07/10/17 [History Confirmed 07/10/17] Gabapentin [Neurontin] 300 mg PO DAILY 07/10/17 [History Confirmed 07/10/17] Omeprazole 20 mg PO DAILY 07/10/17 [History Confirmed 07/10/17] Pravastatin (NF) [Pravachol (NF)] 40 mg PO DAILY 07/10/17 [History Confirmed ] Tamsulosin HCl [Flomax] 0.4 mg PO DAILY 07/10/17 [History Confirmed 07/10/17] PMH/Surg Hx/FS Hx/Imm Hx Endocrine/Hematology History: Denies: Hx Diabetes, Hx Thyroid Disease Cardiovascular History: Reports: Hx Hypercholesterolemia Denies: Hx Congestive Heart Failure, Hx Hypertension - 02/28/2017 TOOK PT OFF MEDS DUE TO LOW BP, Hx Pacemaker/ICD, Other Cardiovascular Problems/Disorders Respiratory History: Denies: Hx Asthma, Hx Chronic Obstructive Pulmonary Disease (COPD) GI History: Reports: Other GI Disorders - SBO 07/2014 Denies: Hx Ulcer History: Reports: Other Problems/Disorders - hx prostate cancer Denies: Hx Dialysis, Hx Renal Disease Musculoskeletal History: Reports: Hx Arthritis Denies: Other Musculoskeletal History Sensory History: Reports: Hx Contacts or Glasses - glasses Denies: Hx Hearing Aid Opthamlomology History: Reports: Hx Contacts or Glasses - glasses Psychiatric History: Denies: Hx Panic Disorder - Cancer History Cancer Type, Location and Year: Prostate cancer, diagnosed 2011. gall bladder CA 2014, and CURRENT - Surgical History Surgery Procedure, Year, and Place: Right knee replacement x2, most recent 2010 , [place]. Left knee replacement, 2008, [place]. Carpal tunnel release, right hand, 04/2013, [place]. prostate biopsy. CHOLECYSTECTOMY ~08-08-14,abdominal exploritory and removal of cancerous lymph nodes. RADIATION SEEDS PUT IN PROSTATE 04/2016 Hx Anesthesia Reactions: No - Immunization History Date of Influenza Vaccine: fall 2016 Infectious Disease History: No Infectious Disease History: Denies: Hx Hepatitis, Hx Human Immunodeficiency Virus (HIV), Traveled Outside the [place] in Last 30 Days - Family History Known Family History: Positive: Cardiac Disease - CHF, Other - colon CA, prostate CA, dementia - Social History Alcohol Use: None Alcohol Amount: 1x per week Hx Substance Use: No Substance Use Type: Reports: None Hx Tobacco Use: No Smoking Status (MU): Never Smoked Tobacco Review of Systems Positive: Fever Negative: Chest Pain Negative: Shortness Of Breath Negative: Abdominal Pain, Vomiting, Diarrhea, Nausea Musculoskeletal: Negative - head injury Positive: Edema - LE Positive: Weakness, Syncope - near All Other Systems Reviewed And Are Negative: Yes Physical Exam - Summary Physical Exam Summary: Appearance: ill appearing, no pain distress, able to sit up on own Skin: , dry, pallor, and warm to the tough Head/face: abrasions to the midline of the face Eyes: EOMI, WENDY ENT: normal, moist mucous membranes Neck: supple, non-tender Respiratory: CTA, breath sounds present but diminished, no rales or rhonchi Cardiovascular: RRR, pulses symmetrical Abdomen: non-tender, soft, surgical scar to RUQ Bowel: present Musculoskeletal:, strength/ROM intact port in L chest, IV in R arm, 1 to 2+ lower extremity edema Neuro: normal, sensory motor intact, A&Ox3 Triage Information Reviewed: Yes Vital Signs On Initial Exam: Initial Vitals Temp Pulse Resp BP Pulse Ox 99 F 142 24 108/69 100 07/10/17 20:19 07/10/17 20:19 07/10/17 20:19 07/10/17 20:19 07/10/17 20:19 Vital Signs Reviewed: Yes Diagnostics - Vital Signs Vital Signs Temp Pulse Resp BP Pulse Ox 07/10/17 20:19 99 F 142 24 108/69 100 - Laboratory Lab Results: Lab Results 07/10/17 07/10/17 07/10/17 Range/Units 21:01 21:01 21:01 WBC 11.0 H (3.5-10.8) 10^3/ul RBC 2.57 L (4.0-5.4) 10^6/ul Hgb 7.0 L (14.0-18.0) g/dl Hct 22 L (42-52) % MCV 84 (80-94) fL MCH 27 (27-31) pg MCHC 32 (31-36) g/dl RDW 20 H (10.5-15) % Plt Count 121 L (150-450) 10^3/ul MPV 8 (7.4-10.4) um3 Neut % (Auto) 98.8 H (38-83) % Lymph % (Auto) 0.5 L (25-47) % [place] % (Auto) 0.1 L (1-9) % Eos % (Auto) 0 (0-6) % Baso % (Auto) 0.6 (0-2) % Absolute Neuts (auto) 10.7 H (1.5-7.7) 10^3/ul Absolute Lymphs (auto) 0.1 L (1.0-4.8) 10^3/ul Absolute Monos (auto) 0 (0-0.8) 10^3/ul Absolute Eos (auto) 0 (0-0.6) 10^3/ul Absolute Basos (auto) 0.1 (0-0.2) 10^3/ul Absolute Nucleated RBC 0 10^3/ul Neutrophils % 99 H (38-83) % Lymphocytes % 1 L (25-47) % Nucleated RBC % 0 Normal RBC Morphology Not Reportable Hypochromasia 1+ Anisocytosis 2+ Corina Cells 1+ Hem Pathologist Commnt Pending INR (Anticoag Therapy) 1.38 H (0.77-1.02) APTT 22.0 L (26.0-36.3) seconds Sodium 120 L (133-145) mmol/L Potassium 5.5 H (3.5-5.0) mmol/L Chloride 93 L (101-111) mmol/L Carbon Dioxide 17 L (22-32) mmol/L Anion Gap 10 (2-11) mmol/L BUN 39 H (6-24) mg/dL Creatinine 1.08 (0.67-1.17) mg/dL Est GFR ( Amer) 86.0 (>60) Est GFR (Non-Af Amer) 66.8 (>60) BUN/Creatinine Ratio 36.1 H (8-20) Glucose 81 (70-100) mg/dL Lactic Acid (0.5-2.0) mmol/L Calcium 7.6 L (8.6-10.3) mg/dL Total Bilirubin 2.70 H (0.2-1.0) mg/dL AST 53 H (13-39) U/L ALT 42 (7-52) U/L Alkaline Phosphatase 375 H (34-104) U/L Troponin I 0.04 H* (<0.04) ng/mL C-Reactive Protein 209.50 H (< 5.00) mg/L B-Natriuretic Peptide ( - 100) pg/mL Total Protein 4.4 L (6.4-8.9) g/dL Albumin 1.7 L (3.2-5.2) g/dL Globulin 2.7 (2-4) g/dL Albumin/Globulin Ratio 0.6 L (1-3) Procalcitonin (<0.6) ng/mL Influenza A (Rapid) (Negative) Influenza B (Rapid) (Negative) Blood Type Antibody Screen Crossmatch 07/10/17 07/10/17 07/10/17 Range/Units 21:01 21:01 21:01 WBC (3.5-10.8) 10^3/ul RBC (4.0-5.4) 10^6/ul Hgb (14.0-18.0) g/dl Hct (42-52) % MCV (80-94) fL MCH (27-31) pg MCHC (31-36) g/dl RDW (10.5-15) % Plt Count (150-450) 10^3/ul MPV (7.4-10.4) um3 Neut % (Auto) (38-83) % Lymph % (Auto) (25-47) % Dodge % (Auto) (1-9) % Eos % (Auto) (0-6) % Baso % (Auto) (0-2) % Absolute Neuts (auto) (1.5-7.7) 10^3/ul Absolute Lymphs (auto) (1.0-4.8) 10^3/ul Absolute Monos (auto) (0-0.8) 10^3/ul Absolute Eos (auto) (0-0.6) 10^3/ul Absolute Basos (auto) (0-0.2) 10^3/ul Absolute Nucleated RBC 10^3/ul Neutrophils % (38-83) % Lymphocytes % (25-47) % Nucleated RBC % Normal RBC Morphology Hypochromasia Anisocytosis Corina Cells Hem Pathologist Commnt INR (Anticoag Therapy) (0.77-1.02) APTT (26.0-36.3) seconds Sodium (133-145) mmol/L Potassium (3.5-5.0) mmol/L Chloride (101-111) mmol/L Carbon Dioxide (22-32) mmol/L Anion Gap (2-11) mmol/L BUN (6-24) mg/dL Creatinine (0.67-1.17) mg/dL Est GFR ( Amer) (>60) Est GFR (Non-Af Amer) (>60) BUN/Creatinine Ratio (8-20) Glucose (70-100) mg/dL Lactic Acid 4.6 H* (0.5-2.0) mmol/L Calcium (8.6-10.3) mg/dL Total Bilirubin (0.2-1.0) mg/dL AST (13-39) U/L ALT (7-52) U/L Alkaline Phosphatase (34-104) U/L Troponin I (<0.04) ng/mL C-Reactive Protein (< 5.00) mg/L B-Natriuretic Peptide 145 H ( - 100) pg/mL Total Protein (6.4-8.9) g/dL Albumin (3.2-5.2) g/dL Globulin (2-4) g/dL Albumin/Globulin Ratio (1-3) Procalcitonin (<0.6) ng/mL Influenza A (Rapid) (Negative) Influenza B (Rapid) (Negative) Blood Type O Positive Antibody Screen Negative Crossmatch See Detail 07/10/17 07/10/17 Range/Units 21:01 21:25 WBC (3.5-10.8) 10^3/ul RBC (4.0-5.4) 10^6/ul Hgb (14.0-18.0) g/dl Hct (42-52) % MCV (80-94) fL MCH (27-31) pg MCHC (31-36) g/dl RDW (10.5-15) % Plt Count (150-450) 10^3/ul MPV (7.4-10.4) um3 Neut % (Auto) (38-83) % Lymph % (Auto) (25-47) % Dodge % (Auto) (1-9) % Eos % (Auto) (0-6) % Baso % (Auto) (0-2) % Absolute Neuts (auto) (1.5-7.7) 10^3/ul Absolute Lymphs (auto) (1.0-4.8) 10^3/ul Absolute Monos (auto) (0-0.8) 10^3/ul Absolute Eos (auto) (0-0.6) 10^3/ul Absolute Basos (auto) (0-0.2) 10^3/ul Absolute Nucleated RBC 10^3/ul Neutrophils % (38-83) % Lymphocytes % (25-47) % Nucleated RBC % Normal RBC Morphology Hypochromasia Anisocytosis [place] Cells Hem Pathologist Commnt INR (Anticoag Therapy) (0.77-1.02) APTT (26.0-36.3) seconds Sodium (133-145) mmol/L Potassium (3.5-5.0) mmol/L Chloride (101-111) mmol/L Carbon Dioxide (22-32) mmol/L Anion Gap (2-11) mmol/L BUN (6-24) mg/dL Creatinine (0.67-1.17) mg/dL Est GFR ( Amer) (>60) Est GFR (Non-Af Amer) (>60) BUN/Creatinine Ratio (8-20) Glucose (70-100) mg/dL Lactic Acid (0.5-2.0) mmol/L Calcium (8.6-10.3) mg/dL Total Bilirubin (0.2-1.0) mg/dL AST (13-39) U/L ALT (7-52) U/L Alkaline Phosphatase (34-104) U/L Troponin I (<0.04) ng/mL C-Reactive Protein (< 5.00) mg/L B-Natriuretic Peptide ( - 100) pg/mL Total Protein (6.4-8.9) g/dL Albumin (3.2-5.2) g/dL Globulin (2-4) g/dL Albumin/Globulin Ratio (1-3) Procalcitonin 5.3 H (<0.6) ng/mL Influenza A (Rapid) Negative (Negative) Influenza B (Rapid) Negative (Negative) Blood Type Antibody Screen Crossmatch Result Diagrams: 07/11/17 00:30 07/11/17 00:30 Lab Statement: Any lab studies that have been ordered have been reviewed, and results considered in the medical decision making process. - Radiology CXR Radiology Interpretation Completed By: Radiologist - LOW LUNG VOLUMES, SMALL LEFT BASILAR INFILTRATE SUGGESTIVE OF ATELECTASIS LESS LIKELY PNEUMONIA. ED Physician has reviewed this report. - EKG 2016 Cardiac Rate: Tachycardia - at 138 BPM EKG Rhythm: Sinus Rhythm ST Segment: Non-Specific EKG Interpretation: normal axis Re-Evaluation - Re-Evaluation First Eval Change: Improved - pt feeling better with IVF. BPs ~100-105 systolic Course/Dx Course Of Treatment: pt with cancer on chemotherapy presents with sepsis syndrome. He appears to be developing a LLL infiltrate. Double abx, lg volume IVF given. BPs stable thru ED stay but trended down after disposition. Seems to be fluid responsive. Hadnt added pressors as he had been dispositioned and hospitalist in ED evaluating. Hyponatremia is chronic, and from old labs appears to be improved slightly. His anemia is worsened. Admitted for further. - Diagnoses Provider Diagnoses: Severe sepsis, Left lower lobe pneumonia, Biliary tract cancer, Anemia, Hyponatremia - Physician Notifications Discussed Care of Patient With: Nancy Rain Time Discussed With Above Provider: 22:05 Instructed by Provider To: Admit As Inpatient - Critical Care Time Critical Care Time: 30-74 min - exclusive of separtely billable procedures Discharge - Discharge Plan Condition: Guarded Disposition: ADMITTED TO [facility] The documentation as recorded by the Alyson hayward Julia accurately reflects the service I personally performed and the decisions made by , Lion Best MD.
[2017-07-11] MEDS: Heparin VIAL(*) 5000 UNITS/ML VIAL (FIVE THOUSAND) SUBCUT SCH ×3 (05:21→21:10)
[2017-07-11] MEDS: Omeprazole CAP* 20 MG PO SCH (05:21)
[2017-07-11 06:09] LABS: Urine Appearance Clear; Urine Blood Negative (Negative); Urine Color Amber; Urine Ketones Negative (Negative); Urine Protein Negative (Negative); Urine Specific Gravity 1.017 (1.010-1.030); Urine Urobilinogen Negative (Negative)
[2017-07-11] MEDS ORDERED: Vancomycin per Pharmacy* NOTE FOLLOW UP PRN (06:46)
[2017-07-11] MEDS: NS 0.9% 1000 ML* 1,000 ML IV SCH ×2 (07:56→17:54)
[2017-07-11] MEDS: Demeclocycline TAB* 150 MG PO SCH ×2 (08:53→21:09)
[2017-07-11] MEDS: Cefepime 1 GM in Dextrose(*) 1 GM/50 ML BAG IV SCH ×2 (08:53→21:09)
[2017-07-11] MEDS: Tamsulosin CAP* 0.4 MG PO SCH (08:54)
[2017-07-11] MEDS: Gabapentin CAP(*) 300 MG PO SCH (08:54)
[2017-07-11] MEDS: Atorvastatin* 10 MG TAB PO SCH (08:54)
[2017-07-11] MEDS ORDERED: Vancomycin 1500 MG IV - x ONCE IVPB ONE ×2 (09:00)
[2017-07-11] MEDS: Azithromycin IV(*) 500 MG in NS 0.9% 250 ML* 250 ML IVPB SCH (10:00)
[2017-07-11 10:19] LABS: Hematocrit 20 % (42-52); Hemoglobin 6.7 g/dl (14.0-18.0); Mean Corpuscular HGB Conc 34 g/dl (31-36); Mean Corpuscular Hemoglobin 28 pg (27-31); Mean Corpuscular Volume 84 fL (80-94); Red Blood Count 2.36 10^6/ul (4.0-5.4); Red Cell Distribution Width 18 % (10.5-15); White Blood Count 9.4 10^3/ul (3.5-10.8)
[2017-07-11 10:32] LABS: INR 1.34 (0.77-1.02)
[2017-07-11 10:33] LABS: EGFR Non-African American 86.9 (>60)
[2017-07-11 11:08] LABS: ABS Basophils 0 10^3/ul (0-0.2); ABS Eosinophils 0 10^3/ul (0-0.6); ABS Lymphocytes 0.1 10^3/ul (1.0-4.8); ABS Monocytes 0.1 10^3/ul (0-0.8); ABS Neutrophils 9.2 10^3/ul (1.5-7.7); ABS Nucleated RBC 0 10^3/ul; Eosinophil % 0 % (0-6); Lymphocyte % 1.3 % (25-47); Mean Platelet Volume 8 um3 (7.4-10.4); Nucleated Red Blood Cells % 0; Platelet Count 70 10^3/ul (150-450)
--- NOTE | 2017-07-11 11:13 | HP ---
CC: Cecelia Gregory NP * HISTORY AND PHYSICAL: DATE OF ADMISSION: 07/10/17 PRIMARY CARE PROVIDER: Cecelia Gregory NP ONCOLOGIST: Dr. Del Valle. CHIEF COMPLAINT: Weakness. HISTORY OF PRESENT ILLNESS: Mr. Dukes is a 76-year-old male who has a history of adenocarcinoma of the gallbladder who is currently receiving chemotherapy, last received approximately 1 week ago, who presents to the emergency room with complaints of weakness. The patient was at home with his and daughter. They noted that he began to start shivering. His temperature was checked, but he had no fever. The patient had an episode of this the day prior to admission as well. The patient got up to go to bed; however, despite using a walker he fell back into his chair. He then started to get up again and his walker was noted to be quite a few feet in front of him. He took a couple of steps and then began to collapse to the floor. The chair had to be rushed over underneath him. The patient's daughter states that his eye is also rolled back in his head. Of note the patient has been having falls recently. His balance has been felt to be poor. The patient's most recent fall was this past when he fell face first and broke his nose and tore the skin on the bridge of his nose requiring sutures. The patient denies any dysuria. He denies any diarrhea. He does admit to having a cough since he has been in the emergency room, but he is not bringing up any sputum. He has had what sound to be rigors as above. PAST MEDICAL HISTORY: 1. Adenocarcinoma of the gallbladder. 2. History of prostate cancer. 3. Hypertension. 4. Hyperlipidemia. 5. History of MALT lymphoma. PAST SURGICAL HISTORY: 1. Cholecystectomy with subsequent liver bed resection and lymph node dissection. 2. Right carpal tunnel release. 3. Left total knee replacement. 4. Right total knee replacement x2. MEDICATIONS: 1. Pravastatin 40 mg p.o. daily. 2. Omeprazole 20 mg p.o. daily. 3. Gabapentin 300 mg p.o. daily. 4. Flomax 0.4 mg p.o. daily. 5. Demeclocycline 300 mg p.o. b.i.d. ALLERGIES: No known drug allergies. FAMILY HISTORY: Mom at age of 92. She had heart failure and dementia. Dad at age 62 of colon cancer. The patient has 2 brothers, which both have prostate cancer. SOCIAL HISTORY: The patient is a lifelong nonsmoker. He drinks alcohol very rarely. He worked for the [employer] in the [employer] division. He is . His Nicole Dukes is his healthcare proxy. If she is unavailable his daughter, Shirin, is the next healthcare proxy. He has 4 children. REVIEW OF SYSTEMS: The patient denies any fever. He does admit to the rigors as above. He has had chronic anorexia that is perhaps slightly improving. Most recently no chest pain. He has had lower extremity edema noted since last week and no palpitations. He admits to cough that began in the emergency room. No significant shortness of breath. However, he feels like he cannot take a deep breath. No nausea, vomiting, abdominal pain, constipation, diarrhea, or hematochezia. No hematuria. No dysuria. No focal weakness or sensory loss. No sudden changes in vision. No dysphagia. He does feel achy all over. He has no rashes. He has several sutures over the bridge of his nose. He does admit to anxiety. The patient also admits to having had paracentesis done this past Tuesday. PHYSICAL EXAMINATION GENERAL: The patient is a well-developed, elderly, chronically ill-appearing male, sitting up in stretcher, in no acute distress. VITAL SIGNS: Blood pressure 80/62, pulse 107, respirations 18, temp 99.0, O2 sat 100% on 2 L. HEENT: Pupils are equal and round. Extraocular muscles are intact. Oropharynx is clear. Oral mucosa is moist. The patient does have excoriations noted over the nose and the upper lip. There are numerous sutures noted over the bridge of the nose. Steri-strips are also in place. There is no submandibular cervical or supraclavicular adenopathy. Thyroid is not enlarged. No thyroid nodules are noted. PULMONARY: Breath sounds are diminished throughout. Crackles are heard at the right base. CARDIAC: Normal S1, S2. Heart rate is mildly tachycardic. It is regular. There are no murmurs noted. The patient does have 1 to 2+ bilateral lower extremity pitting edema. ABDOMEN: Bowel sounds are present. Abdomen is soft, mildly distended, nontender. MUSCULOSKELETAL: There is no cyanosis or clubbing of the digits. There is full active range of motion of all 4 extremities. SKIN: Warm and dry. There are no rashes. NEUROLOGIC: Cranial nerves II through XII are grossly intact. Sensation is intact throughout. Strength is normal in all 4 extremities. PSYCH: The patient is alert. He is oriented x3. Affect appears appropriate. LABORATORY DATA: WBC 11.0, hemoglobin 7.0, hematocrit 22, platelets 121, absolute neutrophils 10.7, INR 1.38. Sodium 120, potassium 5.5, chloride 93, CO2 17, BUN 39, creatinine 1.08, glucose 81, lactic acid 4.6, calcium 7.6, bilirubin 2.7, AST 53, ALT 42, alk phos 375, troponin 0.04. CRP 209.5, BNP 145 , albumin 1.7, influenza A and B negative. EKG revealed sinus tachycardia without any acute ST-T wave abnormalities. Chest x- ray low lung volume, small left basilar infiltrates suggestive of atelectasis, less likely pneumonia. ASSESSMENT AND PLAN: Mr. Dukes is a 76-year-old male who is being actively treated for adenocarcinoma of the gallbladder who also has a history of prostate cancer and MALT lymphoma who presents to the emergency room with complaints of weakness and is found to be mildly tachycardic, hypotensive with worsened anemia and persistent hyponatremia. 1. Weakness. The etiology of this is not completely clear. I suspect the weakness is secondary to an infectious process. The patient had what sounds to be rigors. Blood cultures have been sent and are pending at this time. The patient does have crackles at the right base. This in conjunction with the mildly elevated white blood cell count, does make me concerned for possible pneumonia. We will go ahead and treat the patient with vancomycin, cefepime, and azithromycin. A procalcitonin level has been sent. The antibiotic therapy can likely be narrowed, if he begins to improve. Additionally, the patient appears to be volume deplete with slightly elevated BUN and creatinine compared to his baseline as well as hypotension. The volume depletion could be the cause of his weakness as well. The patient has received approximately 2500 mL of fluid in the emergency room and will continue to receive normal saline at 125 mL per hour. The patient's hyponatremia also could contribute to his weakness. His hyponatremia has been persistent, at least back to May of this year; however, most recently over the last 1 week, his sodium has been much lower. He was started on demeclocycline and has had some improvement in his sodium level, however, this still quite low. He will be receiving normal saline, so we will need to follow the sodium level, but I will also continue the demeclocycline. The patient has an elevated lactic acid which also goes along with possible volume depletion versus secondary to an infectious source. 2. Possible sepsis secondary to possible pneumonia. The patient does meet sepsis 2 criteria. He is tachycardic and tachypneic. The patient has an elevated lactic acid indicating possible severe sepsis. The patient has already received the 30 mL/kg fluid bolus in the emergency room. A repeat lactic acid level will be obtained at 0038. Reassessment will be performed at 0100, that is 4 hours after the initial diagnosis of severe sepsis in the emergency room. The patient will be continued on normal saline at 125 mL per hour as patient remains hypotensive. 3. Anemia. The patient is chronically anemic. However, over the last 1 week the patient's hemoglobin has dropped by 2 points. I suspect this is chemotherapy related; however, we will send off a stool guaiac. The patient's BUN is elevated that could indicate possible upper GI bleed. Followup hemoglobin will be obtained at 0038. 4. Thrombocytopenia. The patient's thrombocytopenia is new again I suspect this is secondary to his chemotherapy. We will monitor this. 5. Hyponatremia. This has been an ongoing issue since May of this year. Most recently however his sodium has been quite low in the one-teens. Today's value is 120. The patient will be receiving normal saline and will remain on the demeclocycline. His sodium level will be monitored. 6. Hyperkalemia. The patient's potassium is mildly elevated at 5.5. I am not going to give Kayexalate at this time, but will be hydrating the patient. A followup potassium level will be obtained at 0038 today. 7. Elevated liver panel. The patient's bilirubin is more elevated than usual. His alk phos and AST remained elevated. These will be followed intermittently. 8. Elevated troponin. The patient does have a mildly elevated troponin of 0.04. I suspect this is demand ischemia. The patient will have a repeat troponin at 0038 today. 9. Severe protein calorie malnutrition. The patient has albumin level of 1.7. His malnutrition is likely secondary to poor oral intake secondary to chemotherapy and his cancer. 10. DVT prophylaxis. According to Adult Thrombosis Prophylaxis Risk Factor Assessment Guide, the patient has a total risk factor score of 4, making him high risk. Heparin 5000 units subcutaneous q. 8 hours will be initiated; however, if the patient's platelet count continues to drop this will need to be stopped. 11. The patient is full code. TIME SPENT: 65 minutes was spent admitting this patient. [id number]/[facility] #: [id number]
[2017-07-11 14:58] LABS: Hematocrit 21 % (42-52); Hemoglobin 6.9 g/dl (14.0-18.0)
[2017-07-11] MEDS: Vancomycin(*) 750 MG in NS 0.9% 250 ML* 250 ML IVPB SCH (17:48)
[2017-07-12] MEDS: Ondansetron INJ* 2 MG/ML VIAL IV PRN ×2 (02:31→18:31)
[2017-07-12] MEDS: Vancomycin(*) 750 MG in NS 0.9% 250 ML* 250 ML IVPB SCH (02:31)
[2017-07-12] MEDS: NS 0.9% 1000 ML* 1,000 ML IV SCH ×3 (05:26→18:27)
[2017-07-12] MEDS: Heparin VIAL(*) 5000 UNITS/ML VIAL (FIVE THOUSAND) SUBCUT SCH ×3 (05:26→21:33)
[2017-07-12] MEDS: Omeprazole CAP* 20 MG PO SCH (05:26)
[2017-07-12 07:46] LABS: ABS Basophils 0 10^3/ul (0-0.2); ABS Eosinophils 0 10^3/ul (0-0.6); ABS Lymphocytes 0.1 10^3/ul (1.0-4.8); ABS Monocytes 0.1 10^3/ul (0-0.8); ABS Neutrophils 5.5 10^3/ul (1.5-7.7); ABS Nucleated RBC 0 10^3/ul; Eosinophil % 0.2 % (0-6); Hematocrit 23 % (42-52); Hemoglobin 7.8 g/dl (14.0-18.0); Lymphocyte % 1.6 % (25-47); Mean Corpuscular HGB Conc 34 g/dl (31-36); Mean Corpuscular Hemoglobin 28 pg (27-31); Mean Corpuscular Volume 84 fL (80-94); Mean Platelet Volume 8 um3 (7.4-10.4); Nucleated Red Blood Cells % 0; Platelet Count 53 10^3/ul (150-450); Red Blood Count 2.75 10^6/ul (4.0-5.4); Red Cell Distribution Width 19 % (10.5-15); White Blood Count 5.7 10^3/ul (3.5-10.8)
[2017-07-12] MEDS ORDERED: Iohexol 300* (CONTRAST) 10 ML SDV IV ONE (07:56)
[2017-07-12] MEDS: Tamsulosin CAP* 0.4 MG PO SCH (08:24)
[2017-07-12] MEDS: Demeclocycline TAB* 150 MG PO SCH ×2 (08:24→21:34)
[2017-07-12] MEDS: Gabapentin CAP(*) 300 MG PO SCH (08:24)
[2017-07-12] MEDS: Azithromycin IV(*) 500 MG in NS 0.9% 250 ML* 250 ML IVPB SCH (08:25)
[2017-07-12] MEDS: Atorvastatin* 10 MG TAB PO SCH (08:25)
[2017-07-12] MEDS ORDERED: Vancomycin Trough Check NOTE FOLLOW UP ONE (09:00)
[2017-07-12] MEDS: Cefepime 1 GM in Dextrose(*) 1 GM/50 ML BAG IV SCH ×2 (09:51→21:33)
--- NOTE | 2017-07-12 12:33 | RAD ---
INDICATION: Gallbladder bladder carcinoma. Prostate carcinoma. COMPARISON: CT chest/abdomen/pelvis April 15, 2017 TECHNIQUE: Axial source images were obtained from the thoracic inlet to the symphysis pubis following administration of oral and intravenous contrast. 127 mL Omnipaque 300 was utilized. Coronal and sagittal reconstructed images were acquired. CHEST FINDINGS: Neck/thyroid: The visualized neck to include the thyroid appear normal. There is a left-sided Kblyff-t-Hfyk catheter Chest wall: There are no acute abnormalities of the bony thorax or chest wall. There is no supraclavicular, infraclavicular, or axillary lymphadenopathy. Lungs : There is evidence of old granulomatous disease with calcified granuloma in the right lung base. There is linear change at both lung bases most consistent with atelectasis. Cardiomediastinal structures: The heart is normal in size. There is no pericardial effusion. There is no evidence of aortic aneurysm or dissection. The pulmonary vessels appear normal. There is no mediastinal or hilar adenopathy. The esophagus appears normal. Pleura : There is a moderate-sized left-sided pleural effusion. The pleural effusion is new. ABDOMINAL/PELVIC FINDINGS: Liver: The liver is mildly diminutive and microlobulated which may reflect hepatic parenchymal disease. There is mild intrahepatic ductal dilatation likely related to postcholecystectomy state. There are no discrete hepatic masses. Gallbladder: Cholecystectomy. Spleen: Moderate splenomegaly. 8 mm splenic lesion appearing unchanged and likely representing a cyst. Pancreas: There is no evidence of pancreatic mass. There is mild pancreatic ductal dilatation. Adrenal glands: There is no evidence of adrenal mass. Kidneys: The kidneys are normal in size and position. There are prompt nephrograms and there is prompt excretion bilaterally. There are numerous, bilateral renal cysts. There is no evidence of nephrolithiasis. Adenopathy: There is no evidence of adenopathy by size criteria. Fluid collections: There is moderate ascites. There is mild mesenteric nodularity and areas of mild peritoneal enhancement which may reflect peritoneal carcinomatosis. Vessels:The aorta and IVC appear normal . There is apparent portal venous thrombosis with recanalization. There are findings of portal venous hypertension with multiple collateral vessels in the splenic hilar region. There is now a focus of enhancement which measures 5.1 x 3.1 cm which is likely contiguous with multiple varices in the splenic hilar region. This is likely large varix or there has been interval hemorrhage into a contained cystic collection. The cystic collection was present previously. This might be confirmed with multiphase CT imaging if this would be of clinical benefit. GI tract: The GI tract is remarkable for prominent mucosal edema involving both large and small bowel. This appears progressive. There are no findings of obstruction Pelvic organs: The seminal vesicles appear normal. There are multiple prostate seeds Bladder: There are no bladder masses. Abdominal and pelvic soft tissues: Moderate-sized fluid containing periumbilical hernia. Osseous structures: There are no acute osseous findings. IMPRESSION: 1. No CT evidence of metastatic disease to the chest. 2. Basilar linear change likely reflecting atelectasis. New moderate-sized left-sided pleural effusion. 3. Cirrhotic liver morphology. No focal hepatic lesion. 4. Ascites with presumed peritoneal carcinomatosis, unchanged. 5. Portal venous thrombosis with findings of portal venous hypertension. Presumed large varix in the splenic hilar region (see above). 6. Multiple bilateral renal cysts. 7. Radiation therapy seeds within the prostate.
[2017-07-12] MEDS: Diphenoxylat/Atrop 2.5-0.025M* 1 TAB PO PRN ×2 (14:51→21:50)
[2017-07-12] MEDS: oxyCODONE TAB* 5 MG TAB PO PRN (21:33)
[2017-07-13] MEDS: oxyCODONE TAB* 5 MG TAB PO PRN ×2 (01:58→05:48)
[2017-07-13 05:39] LABS: ABS Basophils 0 10^3/ul (0-0.2); ABS Eosinophils 0 10^3/ul (0-0.6); ABS Lymphocytes 0.1 10^3/ul (1.0-4.8); ABS Monocytes 0.1 10^3/ul (0-0.8); ABS Neutrophils 7.9 10^3/ul (1.5-7.7); ABS Nucleated RBC 0 10^3/ul; Eosinophil % 0 % (0-6); Hematocrit 24 % (42-52); Hemoglobin 8.1 g/dl (14.0-18.0); Lymphocyte % 1.1 % (25-47); Mean Corpuscular HGB Conc 33 g/dl (31-36); Mean Corpuscular Hemoglobin 28 pg (27-31); Mean Corpuscular Volume 85 fL (80-94); Mean Platelet Volume 8 um3 (7.4-10.4); Nucleated Red Blood Cells % 0; Platelet Count 33 10^3/ul (150-450); Red Blood Count 2.85 10^6/ul (4.0-5.4); Red Cell Distribution Width 18 % (10.5-15); White Blood Count 8.1 10^3/ul (3.5-10.8)
[2017-07-13] MEDS: Omeprazole CAP* 20 MG PO SCH (05:48)
[2017-07-13 05:49] LABS: EGFR Non-African American 65.9 (>60)
[2017-07-13] MEDS: NS 0.9% 1000 ML* 1,000 ML IV SCH ×2 (05:49→16:50)
[2017-07-13] MEDS: Heparin VIAL(*) 5000 UNITS/ML VIAL (FIVE THOUSAND) SUBCUT SCH (05:49)
[2017-07-13] MEDS: Atorvastatin* 10 MG TAB PO SCH (10:46)
[2017-07-13] MEDS: Demeclocycline TAB* 150 MG PO SCH ×2 (10:47→21:23)
[2017-07-13] MEDS: Gabapentin CAP(*) 300 MG PO SCH (10:47)
[2017-07-13] MEDS: Cefepime 1 GM in Dextrose(*) 1 GM/50 ML BAG IV SCH ×2 (10:51→21:23)
[2017-07-13] MEDS: Tamsulosin CAP* 0.4 MG PO SCH (10:51)
[2017-07-14] MEDS: NS 0.9% 1000 ML* 1,000 ML IV SCH ×2 (03:50→16:34)
[2017-07-14] MEDS: Omeprazole CAP* 20 MG PO SCH (05:22)
[2017-07-14 06:44] LABS: ABS Basophils 0 10^3/ul (0-0.2); ABS Eosinophils 0 10^3/ul (0-0.6); ABS Lymphocytes 0.1 10^3/ul (1.0-4.8); ABS Monocytes 0.2 10^3/ul (0-0.8); ABS Neutrophils 8.3 10^3/ul (1.5-7.7); ABS Nucleated RBC 0 10^3/ul; Eosinophil % 0 % (0-6); Hematocrit 22 % (42-52); Hemoglobin 7.5 g/dl (14.0-18.0); Lymphocyte % 1.4 % (25-47); Mean Corpuscular HGB Conc 34 g/dl (31-36); Mean Corpuscular Hemoglobin 29 pg (27-31); Mean Corpuscular Volume 85 fL (80-94); Mean Platelet Volume 9 um3 (7.4-10.4); Nucleated Red Blood Cells % 0; Platelet Count 19 10^3/ul (150-450); Red Blood Count 2.64 10^6/ul (4.0-5.4); Red Cell Distribution Width 19 % (10.5-15); White Blood Count 8.7 10^3/ul (3.5-10.8)
[2017-07-14 06:47] LABS: EGFR Non-African American 48.6 (>60)
[2017-07-14] MEDS: Gabapentin CAP(*) 300 MG PO SCH (09:16)
[2017-07-14] MEDS: Atorvastatin* 10 MG TAB PO SCH (09:16)
[2017-07-14] MEDS: Cefepime 1 GM in Dextrose(*) 1 GM/50 ML BAG IV SCH ×2 (09:17→20:51)
[2017-07-14] MEDS: Tamsulosin CAP* 0.4 MG PO SCH (09:17)
[2017-07-14] MEDS: Demeclocycline TAB* 150 MG PO SCH ×3 (09:18→21:02)
--- NOTE | 2017-07-14 11:27 | PN ---
Progress Note - Progress Note Date of Service: 07/14/17 SOAP: Subjective: []Does not feel any different. Pain and abdominal fulness, not able to eat. Breathing is fine sitting still and he is not moving much. No fever or chills. Dry mouth. Has edema in hands and feet. Atorvastatin Calcium (Lipitor*) 10 mg PO DAILY [facility] PRN Reason: Protocol Last Admin: 07/14/17 09:16 Dose: 10 mg Demeclocycline HCl (Declomycin Tab*) 300 mg PO BID [facility] Last Admin: 07/14/17 09:21 Dose: 300 mg Diphenoxylate HCl/Atropine (Lomotil Tab*) 1 tab PO BID PRN PRN Reason: DIARRHEA Last Admin: 07/12/17 21:50 Dose: 1 tab Gabapentin (Neurontin Cap(*)) 300 mg PO DAILY [facility] Last Admin: 07/14/17 09:16 Dose: 300 mg Cefepime HCl (Maxipime 1 Gm In Dextrose Duplex (*)) 1 gm in 50 mls @ 100 mls/ hr IV Q12H [facility] Last Admin: 07/14/17 09:17 Dose: 100 mls/hr Sodium Chloride (Ns 0.9% 1000 Ml*) 1,000 mls @ 100 mls/hr IV PER RATE [facility] Last Admin: 07/14/17 03:50 Dose: 100 mls/hr Omeprazole (Prilosec Cap*) 20 mg PO DAILY@0600 [facility] Last Admin: 07/14/17 05:22 Dose: 20 mg Ondansetron HCl (Zofran Inj*) 4 mg IV Q6H PRN PRN Reason: NAUSEA Last Admin: 07/12/17 18:31 Dose: 4 mg Oxycodone HCl (Roxycodone Tab*) 10 mg PO Q4H PRN PRN Reason: PAIN Last Admin: 07/13/17 05:48 Dose: 10 mg Tamsulosin HCl (Flomax Cap*) 0.4 mg PO DAILY [facility] Last Admin: 07/14/17 09:17 Dose: 0.4 mg Objective: [] Vital Signs Temp Pulse Resp BP Pulse Ox 97.3 F 88 16 92/56 100 07/14/17 07:33 07/14/17 07:33 07/14/17 09:16 07/14/17 07:33 07/14/17 07:33 HEENT - bruising on face, dry mouth, no oral lesions CTA sup, decreased BS inf, no wheezing + fluid wave, tense, nt. has BS Ext +2 edema throughout Neuro AAOx3 and fully coherent. Laboratory Results - last 24 hr 07/14/17 07/14/17 06:06 06:06 WBC 8.7 RBC 2.64 L Hgb 7.5 L Hct 22 L MCV 85 MCH 29 MCHC 34 RDW 19 H Plt Count 19 L MPV 9 Neut % (Auto) 95.8 H Lymph % (Auto) 1.4 L [place] % (Auto) 2.7 Eos % (Auto) 0 Baso % (Auto) 0.1 Absolute Neuts (auto) 8.3 H Absolute Lymphs (auto) 0.1 L Absolute Monos (auto) 0.2 Absolute Eos (auto) 0 Absolute Basos (auto) 0 Absolute Nucleated RBC 0 Nucleated RBC % 0 Sodium 121 L Potassium 5.2 H Chloride 99 L Carbon Dioxide 16 L Anion Gap 6 BUN 50 H Creatinine 1.42 H Est GFR ( Amer) 62.5 Est GFR (Non-Af Amer) 48.6 BUN/Creatinine Ratio 35.2 H Glucose 93 Calcium 7.8 L Assessment: []77 year old with metastatic billiary cancer who has been stable but compromised on chemotherapy. Objective measures of disease are stable. Now comes in with acute deterioration with Eifkenella corrodens bacteremia. Today I am concerned about progressive sepsis. Of note he has had recurrent paracentesis. Most likley source of infection is peritoneal fluid. Discussed with patient and that he is very ill, I am concerned bout low blood pressure and rise in Cr. I do not know if he will survive this infection. I do not feel he should have CPR or be intubated, patient and agreed. His children are in area with one son in [place]. I advised she call the children to come see him now. Plan: []1. Will send diagnostic sample from abdominal fluid. 2. Re-check BC, one from port and one peripheral 3. Add Flagyl to antibiotics 4. DNR/DNI 5. Continue NS, hold Flowmax for decreased BP
[2017-07-14] MEDS: metroNIDAZOLE IV 500 MG/100ML* 500 MG/100 ML BAG IVPB SCH ×2 (12:33→22:04)
[2017-07-14] MEDS ORDERED: traZODone TAB* 50 MG TAB PO PRN (15:11)
[2017-07-14] MEDS ORDERED: Lidocaine 1%* 5 ML VIAL ONE (17:00)
[2017-07-15] MEDS: NS 0.9% 1000 ML* 1,000 ML IV SCH ×2 (04:49→17:29)
[2017-07-15] MEDS: metroNIDAZOLE IV 500 MG/100ML* 500 MG/100 ML BAG IVPB SCH ×2 (04:51→11:52)
[2017-07-15 05:50] LABS: ABS Basophils 0 10^3/ul (0-0.2); ABS Eosinophils 0 10^3/ul (0-0.6); ABS Lymphocytes 0.1 10^3/ul (1.0-4.8); ABS Monocytes 0.2 10^3/ul (0-0.8); ABS Neutrophils 5.6 10^3/ul (1.5-7.7); ABS Nucleated RBC 0 10^3/ul; Eosinophil % 0 % (0-6); Hematocrit 21 % (42-52); Hemoglobin 6.9 g/dl (14.0-18.0); Lymphocyte % 1.4 % (25-47); Mean Corpuscular HGB Conc 33 g/dl (31-36); Mean Corpuscular Hemoglobin 28 pg (27-31); Mean Corpuscular Volume 85 fL (80-94); Mean Platelet Volume 10 um3 (7.4-10.4); Nucleated Red Blood Cells % 0; Platelet Count 11 10^3/ul (150-450); Red Blood Count 2.47 10^6/ul (4.0-5.4); Red Cell Distribution Width 19 % (10.5-15); White Blood Count 5.9 10^3/ul (3.5-10.8)
[2017-07-15 06:00] LABS: EGFR Non-African American 52.9 (>60)
[2017-07-15] MEDS: Omeprazole CAP* 20 MG PO SCH (06:03)
[2017-07-15] MEDS: Cefepime 1 GM in Dextrose(*) 1 GM/50 ML BAG IV SCH (09:12)
[2017-07-15] MEDS: Gabapentin CAP(*) 300 MG PO SCH (09:12)
[2017-07-15] MEDS: oxyCODONE TAB* 5 MG TAB PO PRN (09:13)
[2017-07-15] MEDS: Demeclocycline TAB* 150 MG PO SCH (09:13)
[2017-07-15] MEDS: Atorvastatin* 10 MG TAB PO SCH (09:13)
--- NOTE | 2017-07-15 12:26 | ECHO ---
Patient: LUCAS SHEPHERD [facility] Rec#: [id number] : 1940 Date: 07/15/2017 Age: 77y Height: 185 cm / 72.8 in Weight: 95.3 kg / 210.0 lbs Sex: M BSA: 2.2 Room#: 432 Admit Date#: 07/10/2017 Type: Inpatient Referring: Derek Del Valle MD Reading: Fernie Hill DO Electrical Lineman: Fatou Mancia RN RDCS CC: Cecelia Gregory NP Transthoracic Echocardiogram Indication: Bacteremia BP: 105/61 HR: 83 Rhythm: NSR Findings History: HTN, HLD, adenocarcinoma of gall bladder, chemotherapy, prostate cancer, MALT lymphoma, positive blood cultures for Eikenella corrodens. Technical Comments: The study is technically limited due to poor acoustic windows. Completed at 1125. The study is technically limited due to patient body habitus. The study was technically limited due to the patient's inability to lay in the left lateral decubitus position. The patient did not want an echo enhancing agent used at this time. Left Ventricle: The left ventricular chamber size is normal. Mild concentric left ventricular hypertrophy is observed. There is normal left ventricular systolic function. The estimated ejection fraction is 55-60%. There is no consistent Doppler evidence of clinically significant diastolic dysfunction. Left Atrium: The left atrial chamber size is normal. Right Ventricle: The right ventricular chamber size and systolic function are within normal limits. Right Atrium: The right atrial cavity size is normal. Aortic Valve: The aortic valve structure is not well visualized. The aortic valve leaflets are mildly thickened. There is no evidence of aortic regurgitation. There is no evidence of aortic stenosis. Mitral Valve: The mitral valve leaflets are mildly thickened. There is a trace of mitral regurgitation. There is no evidence of mitral stenosis. No vegetation is observed on the mitral valve. Tricuspid Valve: The tricuspid valve structure is not well visualized. The tricuspid valve leaflets are normal. There is no evidence of tricuspid valve regurgitation. There is no tricuspid stenosis. Pulmonic Valve: The pulmonic valve structure is not well visualized. Pericardium: There is no significant pericardial effusion. Aorta: The ascending aorta is not well visualized. The aortic arch is not well visualized. There is mild dilatation of the aortic root. Pulmonary Artery: The main pulmonary artery is not well visualized. Venous: The venous system is not well visualized. The inferior vena cava is not visualized. Conclusions The left ventricular chamber size is normal. Mild concentric left ventricular hypertrophy is observed. There is normal left ventricular systolic function. The estimated ejection fraction is 55-60%. Difficult endocardial visualization. Patient declined IV definity enhancement agent. The left atrial chamber size is normal. The right ventricular chamber size and systolic function are within normal limits. No obvious vegetation on the tricuspid, aortic or mitral valves on technically difficult imaging. Pulmonic valve not visualized. None prior for comparison. Measurements Name Value Normal Range RVDdMajor (2D) 3.2 cm (2.2 - 4.4) RAd ISD 4CH 4.7 cm (3.4 - 4.9) RA (A4C)W 3.5 cm (2.9 - 4.6) IVSd (2D) 1.2 cm (0.6 - 1) LVPWd (2D) 1.2 cm (0.6 - 1) Ao root diameter (2D) 3.6 cm (2.1 - 3.5) LA dimension (AP) 2D 3.8 cm (2.3 - 3.8) LAd ISD 4CH 5.3 cm (2.9 - 5.3) LA ISD 4CH W 4.7 cm (2.5 - 4.5) Name Value Normal Range MV E-wave Vmax 0.72 m/sec - MV deceleration time 227 msec - MV A-wave Vmax 1 m/sec - MV E:A ratio 0.7 ratio - LV septal e' Vmax 0.1 m/sec - LV lateral e' Vmax 0.16 m/sec - LV E:e' septal ratio 7.2 ratio - LV E:e' lateral ratio 4.5 ratio - Name Value Normal Range AV Vmax 1.4 m/sec - AV VTI 26.9 cm - AV peak gradient 8.3 mmHg - AV mean gradient 5.3 mmHg - LVOT Vmax 1.1 m/sec - LVOT VTI 20.3 cm - LVOT peak gradient 4.8 mmHg - LVOT mean gradient 2.7 mmHg - Name Value Normal Range PV Vmax 0.86 m/sec -
--- NOTE | 2017-07-15 15:28 | CONS ---
CONSULTATION REPORT: DATE OF CONSULT: 07/15/17 REQUESTING PHYSICIAN: Dr. Del Valle. CONSULTING SERVICE: Infectious Disease. REASON FOR CONSULTATION: Bacteremia. IMPRESSION: 1. Admitted after a fall. One of 4 blood culture bottles growing Eikenella corrodens, this is more of the hacek organisms. Since there is only 1 of 4 bottles positive, it is less likely to be infective endocarditis; however, I agree with the transthoracic echocardiogram. It is also oral capo, he has had no dental issues and no jaw or neck infection. He has had the gallbladder resected and treatment for adenocarcinoma of the gallbladder. There was no gallbladder fossa abscess or liver abscess seen on the CT scan. His ascites is the possible source of infection as well. 2. 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 3. Status post bilateral knee arthroplasties which are asymptomatic. RECOMMENDATIONS: I will change cefepime to ceftriaxone. He is going to have a paracentesis for SBP evaluation today. HISTORY OF PRESENT ILLNESS: This is a 77-year-old man with adenocarcinoma of the gallbladder receiving chemotherapy for that, admitted after a fall. He has had some falls at home with weakness, malaise. He cannot point any focal symptoms other than his diffuse abdominal pain which is chronic and due to ascites in his mind. He has periodic paracentesis, has not had one this admission. His white count on admission was 5.7. He has been afebrile. Blood cultures were taken initially, one of 4 is growing Eikenella corrodens. He has had some loose stools. The PCR was negative. The stool culture is pending. Follow up blood cultures are negative at this point after being on cefepime for 3 days. His knees are not bothering him. He has no prosthetic material present other than his knees and his left chest port which is only recently accessed other than for chemotherapy. PAST MEDICAL HISTORY: 1. Adenocarcinoma of the gallbladder. 2. Prostate cancer treated with brachytherapy. 3. Hypertension. 4. Hyperlipidemia. 5. History of MALT lymphoma. 6. Status post cholecystectomy and liver bed resection, no dissection. 7. Status post right carpal tunnel release. 8. Status post bilateral knee arthroplasties, the right was done twice. MEDICATIONS: 1. Lipitor. 2. Demeclocycline. 3. Diphenoxylate and atropine. 4. Gabapentin. 5. Lidocaine topical. 6. Cefepime 1 g IV every 12 hours. 7. Flagyl 500 mg IV every 8 hours. 8. Omeprazole. 9. Oxycodone. 10. Trazodone. ALLERGIES: No known drug allergies. FAMILY HISTORY: Mother at 92 with heart failure and dementia. Father at 62 of colon cancer. SOCIAL HISTORY: He is a nonsmoker. Occasional alcohol. . No travel. REVIEW OF SYSTEMS: A 14-point review of systems was negative except as noted above. PHYSICAL EXAM: Vital Signs: Temperature 36.7, heart rate 90, respiratory rate 18, blood pressure 90/50, oxygen saturation 98% on room air. General: He is awake, not in distress. Neurologic: He is oriented x3. Follows all commands. Moves all extremities. HEENT: There is no conjunctival hemorrhage. Oropharynx without lesions. No gum induration or erythema. Neck: Supple without mass. Lymph Nodes: There is no cervical, supraclavicular, inguinal, axillary, or epitrochlear lymphadenopathy. Heart is regular rate and rhythm without murmurs, rubs or gallops. Lungs: Decreased breath sounds at the bases bilaterally without wheezes, rales or rhonchi. Abdomen: Soft, bulging flanks, distended. Bowel sounds present. There is no rebound. Skin: There is no rash or splinter hemorrhages. Musculoskeletal: No spine tenderness to palpation or joint synovitis. LABORATORY DATA: White blood cell count 5.9, hemoglobin 6.9, platelets 11. Creatinine is 1.3. Vancomycin trough 13 on the 07/12/17. Urinalysis negative. Influenza PCR negative. Please see the impressions and recommendation as outlined above. Thank you for asking me to see Mr. Dueks in consultation. [id number]/[facility] #: [id number] JUAN ANTONIO
[2017-07-15 15:33] VITALS: BP 91/51
[2017-07-15] MEDS ORDERED: Ondansetron ODT TAB* 4 MG SL PRN (18:02)
[2017-07-15] MEDS ORDERED: Acetaminophen TAB* 325 MG PO PRN (18:02)
--- NOTE | 2017-07-15 18:46 | PN ---
Progress Note - Progress Note Date of Service: 07/15/17 SOAP: Subjective: []Stable overnight but continued pain. Not eating. Very weak. Acetaminophen (Tylenol Tab*) 650 mg PO Q4H PRN PRN Reason: FEVER Atropine Sulfate (Atropine 1% (Oral/Sl)*) 2 drop SL Q2H PRN PRN Reason: Terminal Secretions Diphenoxylate HCl/Atropine (Lomotil Tab*) 1 tab PO BID PRN PRN Reason: DIARRHEA Last Admin: 07/12/17 21:50 Dose: 1 tab Lorazepam (Ativan Tab(*)) 1 mg SL Q8H PRN PRN Reason: Anxiety/Agitation Morphine Sulfate (Morphine Oral Concentrate*) 5 mg SL Q2H PRN PRN Reason: Pain or Dyspnea Ondansetron HCl (Zofran Odt Tab*) 8 mg SL Q8H PRN PRN Reason: NAUSEA/VOMITING Trazodone HCl (Desyrel Tab*) 50 mg PO BEDTIME PRN PRN Reason: SLEEP Objective: [] Vital Signs Temp Pulse Resp BP Pulse Ox 97.5 F 103 16 91/51 97 07/15/17 15:25 07/15/17 15:25 07/15/17 15:25 07/15/17 15:25 07/15/17 15:25 PE: No distress, AAOx3 Labs: Na 119, Cr 1.32, decreased blood counts. Assessment: []77 year old with metastatic biliary cancer who has been stable but compromised on chemotherapy. Acute deterioration with Eifkenella corrodens bacteremia. He has had progressive liver and renal failure through hospitalization. No oral intake and decreasing strength. Family meeting today. He will not have any additional therapy for cancer and I do not expect a recovery from current state. Discussed QOL and he does not want to suffer. If we stop all therapy, including antibiotics and fluids, survival in days. Plan: With family we agreed to comfort care. time with patient and chart 45 min.
[2017-07-15] MEDS: Morphine ORAL CONCENTRATE* 5 MG/0.25 ML ORAL.SYRIN SL PRN (20:48)
[2017-07-16] MEDS: Morphine ORAL CONCENTRATE* 5 MG/0.25 ML ORAL.SYRIN SL PRN ×5 (01:50→18:26)
[2017-07-16] MEDS ORDERED: fentaNYL PATCH 25 MCG/HR TRANSDERM SCH (09:00)
--- NOTE | 2017-07-16 09:01 | PN ---
Progress Note - Progress Note Date of Service: 07/16/17 SOAP: Subjective: []Still some pain he thinks, not eating, no distress. Family is with him through day. Acetaminophen (Tylenol Tab*) 650 mg PO Q4H PRN PRN Reason: FEVER Atropine Sulfate (Atropine 1% (Oral/Sl)*) 2 drop SL Q2H PRN PRN Reason: Terminal Secretions Diphenoxylate HCl/Atropine (Lomotil Tab*) 1 tab PO BID PRN PRN Reason: DIARRHEA Last Admin: 07/12/17 21:50 Dose: 1 tab Fentanyl (Duragesic Patch 25 Mcg/Hr*) 25 mcg TRANSDERM Q72H [facility] Heparin Sodium (Porcine) (Heparin Flush Port (Ivad)) 5 ml FLUSH DAILY [facility] PRN Reason: Protocol Last Admin: 07/15/17 22:23 Dose: 5 ml Lorazepam (Ativan Tab(*)) 1 mg SL Q8H PRN PRN Reason: Anxiety/Agitation Morphine Sulfate (Morphine Oral Concentrate*) 5 mg SL Q2H PRN PRN Reason: Pain or Dyspnea Last Admin: 07/16/17 05:28 Dose: 5 mg Ondansetron HCl (Zofran Odt Tab*) 8 mg SL Q8H PRN PRN Reason: NAUSEA/VOMITING Trazodone HCl (Desyrel Tab*) 50 mg PO BEDTIME PRN PRN Reason: SLEEP Last Admin: 07/15/17 20:46 Dose: 50 mg Objective: [] Vital Signs Temp Pulse Resp BP Pulse Ox 97.3 F 97 12 91/51 97 07/16/17 07:32 07/16/17 07:32 07/16/17 07:32 07/15/17 15:25 07/16/17 07:32 PE: No distress dry mouth CTA RRR S1S2 80s +ascites NT +2 ALE AAOx3 Labs: Na 119, Cr 1.32, decreased blood counts. Assessment: []77 year old with metastatic biliary cancer who has been stable but compromised on chemotherapy. Acute deterioration with Eifkenella corrodens bacteremia. Now on comfort care. He is stable today, some residual pain. Plan: Fentanyl 25 mcg patch for pain Discussed with family that prognosis is days to a few week. Consider home or hospice residence on Tuesday.
[2017-07-16] MEDS: fentaNYL Patch Check Q Shift 1 NOTE SCH (18:40)
[2017-07-17] MEDS: fentaNYL Patch Check Q Shift 1 NOTE SCH ×2 (07:24→18:53)
[2017-07-17] MEDS: Morphine ORAL CONCENTRATE* 5 MG/0.25 ML ORAL.SYRIN SL PRN ×5 (08:53→22:02)
--- NOTE | 2017-07-17 08:53 | PN ---
Progress Note - Progress Note Date of Service: 07/17/17 SOAP: Subjective: []Comfortable, agonal breathing. Non responsive Acetaminophen (Tylenol Tab*) 650 mg PO Q4H PRN PRN Reason: FEVER Atropine Sulfate (Atropine 1% (Oral/Sl)*) 2 drop SL Q2H PRN PRN Reason: Terminal Secretions Diphenoxylate HCl/Atropine (Lomotil Tab*) 1 tab PO BID PRN PRN Reason: DIARRHEA Last Admin: 07/12/17 21:50 Dose: 1 tab Fentanyl (Duragesic Patch 25 Mcg/Hr*) 25 mcg TRANSDERM Q72H COUNTS INCLUDE 234 BEDS AT THE [facility] Last Admin: 07/16/17 11:12 Dose: 25 mcg Heparin Sodium (Porcine) (Heparin Flush Port (Ivad)) 5 ml FLUSH DAILY COUNTS INCLUDE 234 BEDS AT THE [facility] PRN Reason: Protocol Last Admin: 07/16/17 20:06 Dose: 5 ml Lorazepam (Ativan Tab(*)) 1 mg SL Q8H PRN PRN Reason: Anxiety/Agitation Morphine Sulfate (Morphine Oral Concentrate*) 5 mg SL Q2H PRN PRN Reason: Pain or Dyspnea Last Admin: 07/16/17 18:26 Dose: 5 mg Ondansetron HCl (Zofran Odt Tab*) 8 mg SL Q8H PRN PRN Reason: NAUSEA/VOMITING Pharmacy Profile Note (Fentanyl Patch Check Q Shift) 1 note N/A 0700,1900 COUNTS INCLUDE 234 BEDS AT THE [facility] Last Admin: 07/17/17 07:24 Dose: 1 note Trazodone HCl (Desyrel Tab*) 50 mg PO BEDTIME PRN PRN Reason: SLEEP Last Admin: 07/15/17 20:46 Dose: 50 mg Objective: [] Vital Signs Temp Pulse Resp BP Pulse Ox 97.2 F 97 12 91/51 97 07/17/17 07:37 07/16/17 07:32 07/17/17 07:37 07/15/17 15:25 07/16/17 07:32 PE: No distress dry mouth agonal breathing. RRR S1S2 80s +ascites NT +2 ALE, cool AAOx3 Assessment: []77 year old with metastatic biliary cancer who has been stable but compromised on chemotherapy. Acute deterioration with Eifkenella corrodens bacteremia. Now on comfort care. Non responsive today and expect will in next 1-3 days. Plan: Fentanyl 25 mcg patch for pain Likely stay in hospital on comfort care
[2017-07-17] MEDS: Atropine 1% (ORAL/SL)* 15 ML BTL SL PRN ×2 (13:03→16:48)
[2017-07-17] MEDS: LORazepam TAB(*) 1 MG SL PRN (22:02)
[2017-07-17] MEDS: Diphenoxylat/Atrop 2.5-0.025M* 1 TAB PO PRN (22:02)
[2017-07-18] MEDS: Atropine 1% (ORAL/SL)* 15 ML BTL SL PRN ×5 (01:08→20:03)
[2017-07-18] MEDS: Morphine ORAL CONCENTRATE* 5 MG/0.25 ML ORAL.SYRIN SL PRN ×7 (01:08→20:03)
[2017-07-18] MEDS: fentaNYL Patch Check Q Shift 1 NOTE SCH ×2 (06:34→18:46)
[2017-07-18] MEDS: LORazepam TAB(*) 1 MG SL PRN (08:05)
--- NOTE | 2017-07-18 09:17 | PN ---
Progress Note - Progress Note Date of Service: 07/18/17 SOAP: Subjective: []comfortable appearing, non responsive Acetaminophen (Tylenol Tab*) 650 mg PO Q4H PRN PRN Reason: FEVER Atropine Sulfate (Atropine 1% (Oral/Sl)*) 2 drop SL Q2H PRN PRN Reason: Terminal Secretions Last Admin: 07/18/17 08:05 Dose: 2 drop Diphenoxylate HCl/Atropine (Lomotil Tab*) 1 tab PO BID PRN PRN Reason: DIARRHEA Last Admin: 07/17/17 22:02 Dose: 1 tab Fentanyl (Duragesic Patch 25 Mcg/Hr*) 25 mcg TRANSDERM Q72H [facility] Last Admin: 07/16/17 11:12 Dose: 25 mcg Heparin Sodium (Porcine) (Heparin Flush Port (Ivad)) 5 ml FLUSH DAILY [facility] PRN Reason: Protocol Last Admin: 07/18/17 08:05 Dose: 5 ml Lorazepam (Ativan Tab(*)) 1 mg SL Q8H PRN PRN Reason: Anxiety/Agitation Last Admin: 07/18/17 08:05 Dose: 1 mg Morphine Sulfate (Morphine Oral Concentrate*) 5 mg SL Q2H PRN PRN Reason: Pain or Dyspnea Last Admin: 07/18/17 08:04 Dose: 5 mg Ondansetron HCl (Zofran Odt Tab*) 8 mg SL Q8H PRN PRN Reason: NAUSEA/VOMITING Pharmacy Profile Note (Fentanyl Patch Check Q Shift) 1 note N/A 0700,1900 [facility] Last Admin: 07/18/17 06:34 Dose: 1 note Trazodone HCl (Desyrel Tab*) 50 mg PO BEDTIME PRN PRN Reason: SLEEP Last Admin: 07/15/17 20:46 Dose: 50 mg Objective: [] Vital Signs Temp Pulse Resp BP Pulse Ox 97.9 F 97 10 91/51 97 07/17/17 20:00 07/16/17 07:32 07/18/17 08:15 07/15/17 15:25 07/16/17 07:32 PE: No distress dry mouth, secretions agonal breathing. RRR S1S2 80s +ascites NT +2 ALE, cool AAOx3 Assessment: []77 year old with metastatic biliary cancer who has been stable but compromised on chemotherapy. Acute deterioration with Eifkenella corrodens bacteremia. Now on comfort care. Non responsive today and expect will in next 1-3 days. Plan: Fentanyl 25 mcg patch for pain Likely stay in hospital on comfort care discussed with daughter today
== END 2017-07-18 20:50 | disposition expired | DRG 871 ==
LOC: ED 20:09 → MEDTELE 23:43
PROVIDERS: ADMIT Hospitalist; ATTEND Internal Medicine Hematology & Oncology
PROC: 30233N1 Transfusion of Nonautologous Red Blood Cells into Peripheral Vein, Percutaneous Approach (ICD-10-PCS; principal; 2017-07-11)
PROC: 0W9G3ZX Drainage of Peritoneal Cavity, Percutaneous Approach, Diagnostic (ICD-10-PCS; 2017-07-14)
DX: A41.9 Sepsis, unspecified organism (principal); E43 Unspecified severe protein-calorie malnutrition; R18.0 Malignant ascites; C23 Malignant neoplasm of gallbladder; E22.2 Syndrome of inappropriate secretion of antidiuretic hormone; D69.6 Thrombocytopenia, unspecified; E87.5 Hyperkalemia; K72.90 Hepatic failure, unspecified without coma; E78.5 Hyperlipidemia, unspecified; I10 Essential (primary) hypertension; F41.9 Anxiety disorder, unspecified; Z96.653 Presence of artificial knee joint, bilateral; R74.8 Abnormal levels of other serum enzymes; M19.90 Unspecified osteoarthritis, unspecified site; Z66 Do not resuscitate; N19 Unspecified kidney failure; Z51.5 Encounter for palliative care; D64.9 Anemia, unspecified; Z85.46 Personal history of malignant neoplasm of prostate; Z85.72 Personal history of non-Hodgkin lymphomas; Z90.49 Acquired absence of other specified parts of digestive tract; Z80.42 Family history of malignant neoplasm of prostate; Z80.0 Family history of malignant neoplasm of digestive organs; Z82.0 Family history of epilepsy and other diseases of the nervous system; Z68.27 Body mass index [BMI] 27.0-27.9, adult; Z92.21 Personal history of antineoplastic chemotherapy; Z82.49 Family history of ischemic heart disease and other diseases of the circulatory system; K64.9 Unspecified hemorrhoids
CPT/HCPCS: 12013; 36415; 49082; 70450; 70486; 71045; 71260; 74177; 80048; 80051; 80053; 80202; 81003; 82272; 83605; 83735; 83880; 84145; 84484; 85014; 85018; 85025; 85048; 85060; 85610; 85730; 86140; 86850; 86900; 86901; 86922; 87040; 87045; 87046; 87077; 87205; 87493; 87502; 87899; 93005; 93306; 94760; 99212; 99232; 99233; 99285; A9270-GY; G0463; J0456; J0692; J1642; J1644; J2405; J3370; J3490; P9040; Q9967